=== PATIENT | female | born 1945 | race Caucasian/White ===

== ENCOUNTER 2020-04-02 05:55 | Observation (INO) | payer MEDICARE ==
[2020-03-31 13:46] LABS: BASOPHILS # (AUTO) 0.1 (0.0-0.1); BASOPHILS % 0.8 % (0.0-1.0); EOSINOPHILS # (AUTO) 0.1 (0.0-0.4); HEMATOCRIT 43.7 % (34.2-44.1); LYMPHOCYTES # (AUTO) 2.3 (1.0-3.2); LYMPHOCYTES % 35.5 % (18.0-39.1); MEAN CORPUSCULAR HEMOGLOBIN 29.6 pg (28-32); MEAN CORPUSCULAR VOLUME 92.4 fL (81-99); MONOCYTES # (AUTO) 0.4 (0.2-0.8); MONOCYTES % 6.1 % (4.4-11.3); NEUTROPHILS # (AUTO) 3.6 (2.1-6.9); NEUTROPHILS % 55.3 % (38.7-80.0); PLATELET COUNT 256 x10e3/uL (140-360); RED BLOOD COUNT 4.73 x10e6/uL (3.6-5.1); RED CELL DISTRIBUTION WIDTH 13.1 % (11.7-14.4)
[2020-03-31 13:59] LABS: INR 0.83; PROTHROMBIN TIME 11.8 seconds (11.9-14.5)
[2020-03-31 14:00] LABS: PARTIAL THROMBOPLASTIN TIME 26.6 seconds (23.8-35.5)
[2020-03-31 14:04] LABS: ANION GAP 13.4 mmol/L (8-16); CALCIUM 9.3 mg/dL (8.4-10.2); CREATININE, SERUM 0.97 mg/dL (0.57-1.11); POTASSIUM 4.4 mmol/L (3.5-5.1)
--- NOTE | 2020-03-31 14:12 | Diagnostic Imaging Report ---
Exam: CHEST 2 VIEWS Date: 03/31/2020 2:08 PM INDICATION: ^[id number] ^[id number] ^PRE OP Comparison: None FINDINGS: Lines/Tubes:None Lungs:The lungs are well inflated. No focal consolidation or pulmonary edema. Pleura:No pleural effusion. No pneumothorax. Heart/Mediastinum:The cardiomediastinal silhouette is normal in size and contour. Bones/Soft Tissues: No acute osseous abnormality. Mild multilevel degenerative changes of the spine are noted. Upper abdomen: Unremarkable. IMPRESSION: Negative for acute intrathoracic process. Signed by: Blayne Urbano MD on 03/31/2020 2:09 PM
[~2020-04-02] VITALS: Ht 162.6 cm; Wt 71.2 kg
[~2020-04-02 05:55] MED LIST: GABAPENTIN300 MG PO; METOPROLOL SUCC50 MG PO; TIZANIDINE HCL2 MG PO; ULTRAM50 MG PO
[2020-04-02] MEDS ORDERED: LIDOCAINE 1% W/EPINEPHRINE 20 ML VIAL ONE (06:52)
[2020-04-02] MEDS ORDERED: VANCOMYCIN HCL 1 GM VIAL ONE (06:53)
[2020-04-02] MEDS ORDERED: THROMBIN FOR SOLN 5,000 UNIT VIAL ONE (06:53)
[2020-04-02] MEDS ORDERED: VANCOMYCIN 1GM/NS 250 ML 250 ML ONE (07:03)
[2020-04-02] MEDS ORDERED: CARISOPRODOL 350 MG TAB PO PRN (10:00)
[2020-04-02] MEDS ORDERED: ONDANSETRON HCL INJ 2MG/ML 2ML 2 MG/ML VIAL IV PRN (10:00)
[2020-04-02] MEDS ORDERED: MORPHINE SULFATE INJ 4 MG/ML INJ 1ML IM PRN (10:00)
[2020-04-02] MEDS ORDERED: MAGNESIUM/ALUMINUM/SIMETHICONE 30 ML UDC PO PRN (10:00)
[2020-04-02] MEDS ORDERED: TRAMADOL HCL 50 MG TAB PO SCH (10:00)
[2020-04-02] MEDS ORDERED: PROMETHAZINE HCL (IM) 25 MG/ML VIAL IM PRN (10:00)
[2020-04-02] MEDS ORDERED: CEPACOL SORE THROAT LOZENGES PO PRN (10:00)
[2020-04-02] MEDS ORDERED: ACETAMINOPHEN 325 MG TAB PO PRN (10:00)
[2020-04-02] MEDS ORDERED: HYDROMORPHONE 1MG/1ML INJ ONE ×2 (10:48→11:00)
--- OUTSIDE RECORDS SUMMARY | 2020-04-02 11:16 | XMS REPORT | Continuity of Care Document ---
Author Author [facility] t Organization [facility] Address [address] [place] [address] Phone Unavailable Care Team Providers Care Editor Book Name Role Phone JUSTIN PIERRE Attta Unavailable Problems Condition Name Condition Details Condition Category Status Onset Date Resolution Date Last Treatment Date Treating Clinician Comments Source Benign paroxysmal positional vertigo, unspecified late rality Benign paroxysmal positional vertigo, unspecified laterality Active Problem 10/20/2018 [id number] Problem Active 2018-10-20 02:45:15 Jhonatan Palomares Asthmatic bronchitis, moderate persistent, uncomplicat ed Asthmatic bronchitis, moderate persistent, uncomplicated Active Problem 10/20/2018 [id number] Problem Active 2018-10-20 02:45:15 Jhonatan Palomares Insomnia, unspecified type Ins omnia, unspecified type Active Problem 03/19/2020 [id number] Problem Active 2020-03-19 02:45:08 Jhonatan Palomares Acute diverticulitis Acut e diverticulitis Active Problem 03/19/2020 [id number] Problem Active 2020-03-19 02:45:08 Jhonatan Palomares Urinary incontinence in female Urinary incontinence in female Active Problem 03/19/2020 [id number] Problem Active 2020-03-19 02:45:08 Jhonatan Palomares Chronic allergic rhinitis, unspecified seasonality, un specified trigger Chronic allergic rhinitis, unspecified seasonality, unspecified trigger Active Problem 03/19/2020 2.16.840.1.793509.4.391.11.15372 Problem Active 2020-03-19 02:45:08 Jhonatan Palomares Impaired memory Impa ired memory Active Problem 03/19/2020 2.16.840.1.523965.4.391.11.13597 Problem Active 2020-03-19 02:45:08 Jhonatan Jelani Gastroesophageal reflux disease, esophagitis presence not specified Gastroesophageal reflux disease, esophagitis presence not specified Active Problem 03/19/2020 2.16.840.1.268505.4.391.11.37749 Problem Active 2020-03-19 02:45:08 Jhonatan Jelani Hypertensive heart disease without heart failure Hypertensive heart disease without heart failure Active Problem 10/20/2018 2.16.840.1.863275.4.391.11.53743 Problem Active 2018-10-20 02:45:15 Jhonatan Paloamres Menopausal and female climacteric states Menopausal and female climacteric states Active Problem 03/19/2020 2.16.840.1.399876.4.391.11.52896 Problem Active 2020-03-19 02:45:08 Elmer kateajay Palomares Benign essential hypertension Benign essential hypertension Active Problem 03/19/2020 2.16.840.1.604070.4.391.11.72452 Problem Active 2020-03-19 02:45:08 Memmor Palomares Other and unspecified hyperlipidemia Other and unspecified hyperlipidemia Active Problem 03/19/2020 2.16.840.1.313676.4.391.11.66566 Problem Active 2020-03-19 02:45:08 Elmer Palomares Obesity (BMI 30-39.9) Obes ity (BMI 30-39.9) Active Problem 03/19/2020 2.16.840.1.513800.4.391.11.42671 Problem Active 2020-03-19 02:45:08 Jhonatan Palomares Bronchitis, allergic, unspecified asthma severity, unc omplicated Bronchitis, allergic, unspecified asthma severity, uncomplicated Active Problem 10/20/2018 2.16.840.1.835820.4.391.11.95475 Problem Active 2018-10-20 02:45:15 Jhonatan Palomares COPD exacerbation COPD exacerbation Active Problem 10/20/2018 2.16.840.1.883893.4.391..50916 Problem Active 2018-10-20 02:45:15 Jhonatan Palomares Moderate persistent asthmatic bronchitis with acute ex acerbation Moderate persistent asthmatic bronchitis with acute exacerbation Active Problem 03/19/2020 2.16.840.1.189914.4.391.11.07797 Problem Active 2020-03-19 02:45:08 Jhonatan Palomares Altered mental status, unspecified altered mental stat us type Altered mental status, unspecified altered mental status type Active Problem 10/20/2018 2.16.840.1.492690.4.391.11.48205 Problem Active 2018-10-20 02:45:15 Jhonatan Palomares Osteoarthritis, generalized Os teoarthritis, generalized Active Problem 03/19/2020 2.16.840.1.615427.4.391.11.16470 Problem Active 2020-03-19 02:45:08 Jhonatan Palomares Arthritis Arth ritis Active Problem 06/11/2019 2. 16.840.1.532952.4.391.11.01801 Problem Active 2019-06-11 03:48:57 [facility] [place] Other chronic pain Othe r chronic pain Active Problem 03/19/2020 2.16.840.1.267658.4.391.11.83304 Problem Active 2020-03-19 02:45:08 Jhonatan Palomares Postmenopausal bleeding Post menopausal bleeding Active Problem 03/19/2020 2.16.840.1.471035.4.391.11.95417 Problem Active 2020-03-19 02:45:08 Jhonatan Palomares Chest pain, unspecified type C hest pain, unspecified type Active Diagnosis 10/20/2016 2.16.840.1.752314.4.391.11.36124 Diagnosis Active 2016-10-20 02:45:14 Michelet Palomares Abdominal pain, unspecified location Abdominal pain, unspecified location Active Diagnosis 10/20/2016 2.16.840.1.557269.4.391.11.13146 Diagnosis Active 2016-10-20 02:45:14 Jhonatan Palomares Encounter for immunization Enc ounter for immunization Active Diagnosis 03/22/2019 2.16.840.1.533472.4.391.11.28589 Diagnosis Active 2019-03-22 02:49:48 Jhonatan Jelani Vitamin D deficiency Irina min D deficiency Active Problem 03/19/2020 2.16.840.1.339796.4.391.11.85082 Problem Active 2020-03-19 02:45:08 [facility] Vitamin B 12 deficiency Irina min B 12 deficiency Active Diagnosis 12/29/2018 2.16.840.1.858529.4.391.11.05920 Diagnosis Active 2018-12-29 02:46:20 [facility] Encounter for screening Enco unter for screening Active Diagnosis 12/29/2018 2.16.840.1.089358.4.391.11.77304 Diagnosis Active 2018-12-29 02:46:20 [facility] Encounter for annual general medical exa mination with abnormal findings in adult Encounter for an nual general medical examination with abnormal findings in adult Active Diagnosis 07/17/2019 2.16.840.1.302202.4.391.11.06821 Diagnosis Active 2019-07-17 03:45:41 [facility] Generalized edema Gene ralized edema Active Diagnosis 10/11/2017 2.16.840.1.061307.4.391.11.53699 Diagnosis Active 2017-10-11 02:47:24 [facility] Shortness of breath Shor tness of breath Active Diagnosis 10/11/2017 2.16.840.1.294635.4.391.11.03101 Diagnosis Active 2017-10-11 02:47:24 [facility] Arthralgia, unspecified joint Arthralgia, unspecified joint Active Diagnosis 04/15/2018 2.16.840.1.758604.4.391.11.55128 Diagnosis Active 2018-04-15 03:45:52 Michelet Palomares Suicide ideation Suic paul ideation Active Diagnosis 09/29/2018 2.16.840.1.049666.4.391.11.37005 Diagnosis Active 2018-09-29 02:53:28 [facility] [address] Cough Coug h Active Diagnosis 12/23/2017 2.16.840.1.169537.4.391.11.89307 Diagnosis Active 2017-12-23 02:49:22 [facility] Edema, unspecified type Sergio a, unspecified type Active Diagnosis 01/19/2018 2.16.840.1.028976.4.391.11.14142 Diagnosis Active 2018-01-19 02:46:41 [facility] Acute bronchitis due to other specified organisms Acute bronchitis due to other specified organisms Active Diagnosis 06/21/2018 2.16.840.1.191220.4.391.11.04117 Diagnosis Active 2018-06-21 03:49:35 [facility] Wheezing Whee zing Active Diagnosis 06/21/2018 2 ..840.1.280655.4.391.11.36700 Diagnosis Active 2018-06-21 03:49:35 [facility] Low back pain Low back pain Active Diagnosis 06/21/2018 2.16.840.1.568398.4.391..74188 Diagnosis Active 2018-06-21 03:49:35 [facility] BMI 29.0-29.9,adult BMI 29.0-29.9,adult Active Diagnosis 02/13/2016 2.16.840.1.021665.4.391.11.20240 Diagnosis Active 2016-02-13 02:49:25 [facility] Acute bronchitis Acut e bronchitis Active Diagnosis 02/13/2016 2.16.840.1.794972.4.391.11.85400 Diagnosis Active 2016-02-13 02:49:25 [facility] Community acquired pneumonia C ommunity acquired pneumonia Active Diagnosis 05/20/2016 2.16.840.1.078019.4.391.11.03066 Diagnosis Active 2016-05-20 03:54:00 Michelet Palomares Low back pain with sciatica, sciatica la terality unspecified, unspecified back pain laterality, unspecified chronicity Low back pain with sciatica, sciatica laterality unspecified, unspecified back pain laterality, unspecified chronicity Active Diagnosis 06/22/2016 2.16.840.1.788068.4.391.11.71987 Diagnosis Active 2016-06-22 03:54:56 [facility] Acute bronchitis, unspecified organism Acute bronchitis, unspecified organism Active Diagnosis 08/08/2016 2.16.840.1.508765.4.391.11.99889 Diagnosis Active 2016-08-08 02:45:19 [facility] Sigmoid diverticulitis Sigm oid diverticulitis Active Problem 06/11/2019 2.16.840.1.513272.4.391..31848 Problem Active 2019-06-11 03:48:57 [facility] Thyroid nodule Thyr oid nodule Active Problem 03/19/2020 2.16.840.1.871855.4.391..15538 Problem Active 2020-03-19 02:45:08 [facility] Pain in right leg Pain in right leg Active Diagnosis 06/11/2019 2.16.840.1.054225.4.391.68 Diagnosis Active 2019-06-11 03:48:57 [facility] Radicular pain of right lower extremity Radicular pain of right lower extremity Active Diagnosis 06/11/2019 2.16.840.1.507619.4.391..28821 Diagnosis Active 2019-06-11 03:48:57 [facility] [place] Rhonchi at right lung base Rho nchi at right lung base Active Diagnosis 06/11/2019 2.16.840.1.448464.4.391.68 Diagnosis Active 2019-06-11 03:48:57 [facility] Other abnormalities of breathing Other abnormalities of breathing Active Diagnosis 06/11/2019 2.16.840.1.555726.4.391.68 Diagnosis Active 2019-06-11 03:48:57 [facility] [place] Dyspnea, unspecified Dysp giorgio, unspecified Active Diagnosis 06/11/2019 2.16.840.1.575716.4.391.68 Diagnosis Active 2019-06-11 03:48:57 [facility] Vaginal discharge Vagi nal discharge Active Diagnosis 06/11/2019 2.16.840.1.485428.4.391.68 Diagnosis Active 2019-06-11 03:48:57 [facility] Laryngitis Dorothy ngitis Active Diagnosis 06/11/2019 2.16.840.1.332688.4.391.68 Diagnosis Active 2019-06-11 03:48:57 [facility] BMI 25.0-25.9,adult BMI 25.0-25.9,adult Active Diagnosis 07/17/2019 2.16.840.1.820115.4.391.11.28313 Diagnosis Active 2019-07-17 03:45:41 [facility] Severe episode of recurrent major depres sive disorder, without psychotic features Severe episode o f recurrent major depressive disorder, without psychotic features Active Problem 03/19/2020 2.16.840.1.695770.4.391.11.49312 Problem Active 2020-03-19 02:45:08 [facility] 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 Active Problem 03/19/2020 2.16.840.1.455979.4.391.11.42221 Problem Active 2020-03-19 02:45:08 Michelet Palomares Cellulitis of hand Cell ulitis of hand Active Diagnosis 09/10/2019 2.16.840.1.119405.4.391.11.27010 Diagnosis Active 2019-09-10 02:51:29 [facility] Acute gout of right foot, unspecified cause Acute gout of right foot, unspecified cause Active Problem 03/19/2020 2.16.840.1.702394.4.391.11.87964 Problem Active 2020-03-19 02:45:08 Ijeoma Palomares Allergies, Adverse Reactions, Alerts Allergy Name Allergy Type Status Severity Reaction(s) Onset Date Inacti ve Date Treating Clinician Comments Source Aspirin Aspirin Active Info Not Available 2019-12-09 00:00:00 [facility] Penicillin Penicillin Active Info Not Available 2019-12-09 00:00:0 0 [facility] amlodipine amlodipine Active edema 2019-12-09 00:00:00 [facility] Influenza Virus Vacc Split PF Influenza Virus Vacc Split PF Active muscle pain 2017-09-04 00:00:00 [facility] Family History Family Member Diagnosis Comments Start Date Stop Date Source Unknown Family Member Family History 2016-06-22 03:54:56 2 03:54:56 [facility] Social History Social Habit Start Date Stop Date Quantity Comments Source avi Flaherty 2016-07-06 00:00:00 2016-07-06 00:00 :00 [facility] Medications Ordered Medication Name Filled Medication Name Start Date Stop Da te Current Medication? Ordering Clinician Indication Dosage Frequency Signature (SIG) Comments Components Source Xanax 2020-03-18 00:00:00 Yes Lucio Aguila 1/2 h mary tablet [facility] Tramadol HCl 2020-03-18 00:00:00 Yes Lucio Aguila 1 tablet as needed [facility] PredniSONE 2020-01-29 00:00:00 Yes Lucio Aguila 3 tablets a day [facility] Nexium 2020-01-21 02:48:22 Yes Lucio Aguila TAKE ONE CAPSULE BY MOUTH DAILY [facility] Duloxetine HCl 2020-01-21 02:48:22 Yes Lucio Aguila TAKE ONE CAPSULE BY MOUTH DAILY [facility] Maxzide-25 2020-01-21 02:48:22 Yes Lucio Aguila TAKE ONE TABLET BY MOUTH DAILY [facility] Estradiol 2020-01-21 02:48:22 Yes Lucio Aguila TAKE ONE TABLET BY MOUTH DAILY FOR THREE WEEKS - THEN STOP FOR ONE WEEK [facility] hydrochlorothiazide 25 mg tablet 2020-01-21 02:48:22 Yes Lucio Aguila 1 tablet [facility] trazodone 50 mg tablet 2020-01-21 02:48:22 Yes Lucio Aguila 1 tablet [facility] Metoprolol Succinate 2020-01-21 02:48:22 Yes Lucio Aguila 1 tablet [facility] Losartan Potassium 2020-01-21 02:48:22 Yes Lucio Aguila 1 tablet [facility] Tylenol/Codeine #3 2020-01-21 02:48:22 Yes Lucio Aguila TAKE ONE TABLET BY MOUTH EVERY 6 HOURS NEEDED [facility] Pantoprazole Sodium 2020-01-21 02:48:22 Yes Lucio Aguila 1 tablet [facility] Azelastine HCl 2020-01-21 02:48:22 Yes Lucio Aguila SPRAY ONE SPRAY IN EACH NOSTRIL TWICE DAILY (SUBSTITUTE FOR ASTELIN) [facility] Alprazolam 2020-01-21 02:48:22 Yes Lucio Aguila 1/2 half tablet [facility] Avapro 2020-01-21 02:48:22 Yes Lucio Aguila 1 ta blet [facility] Doxycycline Hyclate 2020-01-21 02:48:22 Yes Lucio Aguila 1 tablet [facility] Ciprofloxacin HCl 2020-01-21 02:48:22 Yes Lucio Aguila 1 tablet [facility] Sertraline HCl 2020-01-21 02:48:22 Yes Lucio Aguila 1 tablet [facility] Omeprazole 2020-01-21 02:48:22 Yes Lucio Aguila 1 capsule [facility] Tramadol HCl 2020-01-21 02:48:22 Yes Lucio Aguila TAKE ONE TABLET BY MOUTH TWICE A DAY NEEDED [facility] Estradiol 2020-01-21 02:48:22 Yes Lucio Aguila 1 tablet [facility] Neurontin 2020-01-21 02:48:22 Yes Lucio Aguila 1 capsule [facility] BusPIRone HCl 2020-01-21 02:48:22 Yes Lucio Aguila 1 tablet [facility] Flagyl 2019-12-09 00:00:00 Yes Lucio Aguila 1 ta blet [facility] Cipro 2019-12-09 00:00:00 Yes Lucio Aguila 1 tab let [facility] Keflex 2019-07-05 00:00:00 Yes Lucio Aguila 1 ca psule [facility] Indocin 2019-07-05 00:00:00 Yes Lucio Aguila 1 capsule with food or milk [facility] Omeprazole 2019-07-05 00:00:00 Yes Lucio Aguila 1 capsule 30 minutes before morning meal [facility] Shingrix 2019-06-17 00:00:00 Yes Lucio Aguila as directed [facility] [address] Prevnar 13 2019-06-17 00:00:00 Yes Lucio Aguila as directed [facility] Neurontin 2019-05-17 00:00:00 Yes Lucio Aguila 1 capsule [facility] [address] Azithromycin 2019-05-17 00:00:00 Yes Lucio Aguila as directed [facility] [place] Metronidazole 2019-05-17 00:00:00 Yes Lucio Aguila 1 tablet [facility] Neurontin 2019-05-17 00:00:00 Yes Lucio Aguila 1 capsule [facility] Tramadol HCl 2019-03-22 02:49:48 Yes Lucio Aguila TAKE ONE TABLET BY MOUTH EVERY 6 HOURS NEEDED FOR 7 DAYS [facility] HydrALAZINE HCl 2019-03-14 00:00:00 Yes Lucio Aguila 1 tablet with food [facility] Tramadol HCl 2019-03-14 00:00:00 Yes Lucio Aguila 1 tablet as needed [facility] Metronidazole 2019-02-21 02:50:56 Yes Lucio Aguila 1 tablet [facility] Tramadol HCl 2019-02-21 02:49:26 Yes Lucio Aguila 1 tablet [facility] Ergocalciferol 2019-01-24 00:00:00 Yes Lucio Aguila 1 capsule [facility] PredniSONE 2019-01-23 00:00:00 Yes Lucio Aguila 1 tablet [facility] Losartan Potassium 2019-01-03 00:00:00 Yes Lucio Aguila 1 tablet [facility] Metoprolol Succinate 2018-08-31 02:50:45 Yes Lucio Aguila 1 tablet [facility] alprazolam 0.25 mg Tab 2018-08-31 02:49:20 Yes Lucio J aved 1 capsule [facility] Biaxin 2018-08-28 00:00:00 Yes Lucio Aguila 1 ta blet [facility] Medrol ([facility]) 2018-08-28 00:00:00 Yes Lucio Aguila as directed [facility] PredniSONE 2018-08-06 00:00:00 Yes Lucio Aguila 2 tablet [facility] Pulmicort 2018-08-06 00:00:00 Yes Lucio Aguila 2 ml [facility] Promethazine-DM 2018-07-05 00:00:00 Yes Lucio Aguila 5 ml as needed [facility] Medrol ([facility]) 2018-07-05 00:00:00 Yes Lucio Aguila 1 tablet [facility] Ceftin 2018-07-05 00:00:00 Yes Lucio Aguila 1 ta blet [facility] Tylenol/Codeine #4 2018-06-22 00:00:00 Yes Lucio Aguila 1 tablet as needed [facility] Medrol ([place]) 2018-06-18 00:00:00 Yes Lucoi Aguila 1 tablet [facility] Promethazine VC/Codeine 2018-06-18 00:00:00 Yes Lucio Aguila 5 ml as needed [facility] Vantin 2018-06-18 00:00:00 Yes Lucio Aguila 1 ta blet with food [facility] Tramadol HCl 2018-06-18 00:00:00 Yes Lucio Aguila 1 tablet as needed [facility] Flexeril 2018-04-03 00:00:00 Yes Lucio Aguila 1 tablet as needed [facility] Medrol ([place]o) 2018-04-03 00:00:00 Yes Lucio Aguila as directed [facility] Tylenol 2018-03-08 03:02:12 Yes Lucio Aguila 1 t ablet as needed [facility] Avapro 2018-01-15 00:00:00 Yes Lucio Aguila 1 ta blet [facility] Trelegy Ellipta 2017-12-13 00:00:00 Yes Lucio Aguila 1 puff [facility] Promethazine-Codeine 2017-12-13 00:00:00 Yes Lucio Edwar ed 5 ml as needed [facility] Vantin 2017-12-13 00:00:00 Yes Lucio Aguila 1 ta blet [facility] PredniSONE 2017-10-13 00:00:00 Yes Lucio Aguila 1 tablet [facility] Furosemide 2017-10-05 00:00:00 Yes Lucio Aguila 1 tablet [facility] Klor-Con 10 2017-10-05 00:00:00 Yes Lucio Aguila 1 tablet with food [facility] Meloxicam 2017-09-18 00:00:00 Yes Lucio Aguila 1 tablet at bedtime [facility] Estradiol 2017-09-06 00:00:00 Yes Lucio Aguila 1 tablet [facility] Combivent Respimat 2017-09-04 00:00:00 Yes Lucio Aguila 1 puff [facility] Amlodipine Besylate 2017-09-04 00:00:00 Yes Lucio Aguila 1 tablet [facility] Carafate 2017-09-04 00:00:00 Yes Lucio Aguila 10 ml on an empty stomach before meals [facility] Amlodipine Besylate 2017-09-04 00:00:00 Yes Lucio Aguila 1 tablet [facility] Amlodipine Besylate 2017-08-04 00:00:00 Yes Lucio Aguila 1 tablet [facility] Amlodipine Besylate 2017-08-04 00:00:00 Yes Lucio Aguila 1 tablet [facility] Toprol XL 2017-08-02 00:00:00 Yes Lucio Aguila 1 tablet [facility] Medrol (Neo) 2017-08-02 00:00:00 Yes Lucio Aguila as directed [facility] Tylenol/Codeine #3 2017-08-02 00:00:00 Yes Lucio Aguila 1 tablet as needed [facility] Ceftin 2017-05-18 00:00:00 Yes Lucio Aguila 1 ta blet [facility] PredniSONE 2017-03-09 02:45:26 Yes Lucio Aguila 1 tablet [facility] Estradiol 2017-03-08 00:00:00 Yes Lucio Aguila 1 tablet [facility] PredniSONE 2017-03-08 00:00:00 Yes Lucio Aguila 1 tablet [facility] Estradiol 2017-03-08 00:00:00 Yes Lucio Aguila 1 tablet [facility] Toprol XL 2017-02-08 00:00:00 Yes Lucio Aguila 1 tablet [facility] Myrbetriq 2017-02-08 00:00:00 Yes Lucio Aguila 1 tablet [facility] Premarin 2017-02-08 00:00:00 Yes Lucio Aguila 1 tablet [facility] Cipro 2017-02-08 00:00:00 Yes Lucio Aguila 1 tab let [facility] Premarin 2017-02-08 00:00:00 Yes Lucio Aguila TAKE ONE TABLET BY MOUTH DAILY [facility] Flagyl 2017-02-08 00:00:00 Yes Lucio Aguila 1 ta blet [facility] Premarin 2017-02-08 00:00:00 Yes Lucio Aguila 1 tablet [facility] Toprol XL 2017-02-08 00:00:00 Yes Lucio Aguila 1 tablet [facility] Premarin 2017-01-05 02:46:52 Yes Lucio Aguila TAKE ONE TABLET BY MOUTH DAILY [facility] Medrol ([place]) 2016-12-27 00:00:00 Yes Lucio Aguila as directed [facility] Promethazine-Codeine 2016-12-27 00:00:00 Yes Lucio Edwar ed 5 ml as needed [facility] DuoNeb 2016-12-27 00:00:00 Yes Lucio Aguila 3 ml [facility] Biaxin 2016-12-27 00:00:00 Yes Lucio Aguila 1 ta blet [facility] DuoNeb 2016-12-27 00:00:00 Yes Lucio Aguila 3 ml [facility] [place] DuoNeb 2016-12-27 00:00:00 Yes Lucio Aguila 3 ml [facility] Ditropan XL 2016-10-11 00:00:00 Yes Lucio Aguila as directed [facility] Levaquin 2016-08-18 02:45:16 Yes Lucio Aguila 1 tablet [facility] Triamterene-HCTZ 2016-08-08 02:45:19 Yes Lucio Aguila 1 tablet in the morning [facility] Carafate 2016-08-01 00:00:00 Yes Lucio Aguila 1 tablet on an empty stomach [facility] [place] Medrol ([place]o) 2016-07-06 00:00:00 Yes Lucio Aguila as directed [facility] Guaiatussin AC 2016-07-06 00:00:00 Yes Lucio Aguila 5 ml [facility] Breo Ellipta 2016-07-06 00:00:00 Yes Lucio Aguila 1 puff [facility] Astelin 2016-06-21 00:00:00 Yes Lucio Aguila 1 puff in each nostril [facility] Combivent Respimat 2016-06-21 00:00:00 Yes Lucio Aguila 1 puff [facility] Astelin 2016-06-21 00:00:00 Yes Lucio Aguila 1 puff in each nostril [facility] Combivent Respimat 2016-06-21 00:00:00 Yes Lucio Aguila 1 puff [facility] Tessalon 2016-06-21 00:00:00 Yes Lucio Aguila 1 capsule as needed [facility] Biaxin 2016-06-21 00:00:00 Yes Lucio Aguila 1 ta blet [facility] Levaquin 2016-05-06 00:00:00 Yes Lucio Aguila 1 tablet [facility] Promethazine-Codeine 2016-05-06 00:00:00 Yes Lucio Edwar ed 5 ml as needed [facility] Medrol ([place]) 2016-05-06 00:00:00 Yes Lucio Aguila as directed [facility] Zithromax Tri-[place]o 2016-05-04 00:00:00 Yes Lucio Aguila 1 tablet [facility] Promethazine-DM 2016-05-04 00:00:00 Yes Lucio Aguila 5 ml as needed [facility] Zithromax Tri-[place] 2016-05-03 00:00:00 Yes Lucio Aguila 1 tablet [facility] [place] Promethazine-DM 2016-05-03 00:00:00 Yes Lucio Aguila 5 ml as needed [facility] [place] Toprol XL 2016-02-13 02:49:25 No Lucio Aguila TAKE ONE TABLET BY MOUTH DAILY [facility] [place] Toprol XL 2016-02-09 00:00:00 Yes Lucio Aguila 1 tablet [facility] [place] Toprol XL 2016-02-09 00:00:00 Yes Lucio Aguila 1 tablet [facility] Biaxin 2016-02-09 00:00:00 Yes Lucio Aguila 1 ta blet [facility] Prom[facility]-DM 2016-02-09 00:00:00 Yes Lucio Aguila [facility] V[facility] Sign[facility] Vital Name Observation Time Observation Value Comments Source Weight 2019-12-09 18:15:00 [facility] Height 2019-12-09 18:15:00 [facility] Temperature Oral (F) 2019-12-09 18:15:00 98.0 F [facility] Heart Rate 2019-12-09 18:15:00 [facility] Diastolic (mm Hg) 2019-12-09 18:15:00 [facility] Systolic (mm Hg) 2019-12-09 18:15:00 [facility] Weight 2019-07-05 14:00:00 [facility] Height 2019-07-05 14:00:00 [facility] Heart Rate 2019-07-05 14:00:00 [facility] Diastolic (mm Hg) 2019-07-05 14:00:00 [facility] Systolic (mm Hg) 2019-07-05 14:00:00 [facility] Weight 2019-06-17 19:00:00 [facility] Height 2019-06-17 19:00:00 [facility] Heart Rate 2019-06-17 19:00:00 [facility] Diastolic (mm Hg) 2019-06-17 19:00:00 [facility] Systolic (mm Hg) 2019-06-17 19:00:00 [facility] Weight 2019-05-17 19:45:00 [facility] Height 2019-05-17 19:45:00 [facility] Temperature Oral (F) 2019-05-17 19:45:00 97.1 F [facility] Heart Rate 2019-05-17 19:45:00 [facility] Diastolic (mm Hg) 2019-05-17 19:45:00 [facility] Systolic (mm Hg) 2019-05-17 19:45:00 [facility] Weight 2019-03-14 14:45:00 [facility] Height 2019-03-14 14:45:00 [facility] Temperature Oral (F) 2019-03-14 14:45:00 98.0 F [facility] Heart Rate 2019-03-14 14:45:00 [facility] Diastolic (mm Hg) 2019-03-14 14:45:00 [facility] Systolic (mm Hg) 2019-03-14 14:45:00 [facility] Weight 2019-02-06 15:15:00 [facility] Height 2019-02-06 15:15:00 [facility] Temperature Oral (F) 2019-02-06 15:15:00 97.9 F [facility] Heart Rate 2019-02-06 15:15:00 [facility] Diastolic (mm Hg) 2019-02-06 15:15:00 [facility] Systolic (mm Hg) 2019-02-06 15:15:00 [facility] Weight 2019-01-23 15:00:00 [facility] Height 2019-01-23 15:00:00 [facility] Temperature Oral (F) 2019-01-23 15:00:00 98.1 F [facility] Heart Rate 2019-01-23 15:00:00 [facility] Diastolic (mm Hg) 2019-01-23 15:00:00 [facility] Systolic (mm Hg) 2019-01-23 15:00:00 [facility] Weight 2018-11-08 14:45:00 [facility] Height 2018-11-08 14:45:00 [facility] Temperature Oral (F) 2018-11-08 14:45:00 97.1 F [facility] Heart Rate 2018-11-08 14:45:00 [facility] Diastolic (mm Hg) 2018-11-08 14:45:00 [facility] Systolic (mm Hg) 2018-11-08 14:45:00 [facility] Weight 2018-09-11 15:15:00 [facility] Height 2018-09-11 15:15:00 [facility] Temperature Oral (F) 2018-09-11 15:15:00 97.0 F [facility] Heart Rate 2018-09-11 15:15:00 [facility] Diastolic (mm Hg) 2018-09-11 15:15:00 [facility] Systolic (mm Hg) 2018-09-11 15:15:00 [facility] Weight 2018-08-28 18:30:00 [facility] Height 2018-08-28 18:30:00 [facility] Temperature Oral (F) 2018-08-28 18:30:00 96.4 F [facility] Heart Rate 2018-08-28 18:30:00 [facility] Diastolic (mm Hg) 2018-08-28 18:30:00 [facility] Systolic (mm Hg) 2018-08-28 18:30:00 [facility] Weight 2018-08-06 20:15:00 [facility] Height 2018-08-06 20:15:00 [facility] Temperature Oral (F) 2018-08-06 20:15:00 98.1 F [facility] Heart Rate 2018-08-06 20:15:00 [facility] Diastolic (mm Hg) 2018-08-06 20:15:00 [facility] Systolic (mm Hg) 2018-08-06 20:15:00 [facility] Weight 2018-07-31 15:15:00 [facility] Height 2018-07-31 15:15:00 [facility] Temperature Oral (F) 2018-07-31 15:15:00 96.7 F [facility] Heart Rate 2018-07-31 15:15:00 [facility] Diastolic (mm Hg) 2018-07-31 15:15:00 [facility] Systolic (mm Hg) 2018-07-31 15:15:00 [facility] Weight 2018-07-19 19:15:00 [facility] Height 2018-07-19 19:15:00 [facility] Temperature Oral (F) 2018-07-19 19:15:00 98.8 F [facility] Heart Rate 2018-07-19 19:15:00 [facility] Diastolic (mm Hg) 2018-07-19 19:15:00 [facility] Systolic (mm Hg) 2018-07-19 19:15:00 [facility] Weight 2018-07-05 16:15:00 [facility] Height 2018-07-05 16:15:00 [facility] Temperature Oral (F) 2018-07-05 16:15:00 98.7 F [facility] Heart Rate 2018-07-05 16:15:00 [facility] Diastolic (mm Hg) 2018-07-05 16:15:00 [facility] Systolic (mm Hg) 2018-07-05 16:15:00 [facility] Weight 2018-06-18 16:30:00 [facility] Height 2018-06-18 16:30:00 [facility] Temperature Oral (F) 2018-06-18 16:30:00 99.2 F [facility] Heart Rate 2018-06-18 16:30:00 [facility] Diastolic (mm Hg) 2018-06-18 16:30:00 [facility] Systolic (mm Hg) 2018-06-18 16:30:00 [facility] Weight 2018-04-03 16:30:00 [facility] Height 2018-04-03 16:30:00 [facility] Temperature Oral (F) 2018-04-03 16:30:00 97.3 F [facility] Heart Rate 2018-04-03 16:30:00 [facility] Diastolic (mm Hg) 2018-04-03 16:30:00 [facility] Systolic (mm Hg) 2018-04-03 16:30:00 [facility] Weight 2018-02-12 14:00:00 [facility] Height 2018-02-12 14:00:00 [facility] Temperature Oral (F) 2018-02-12 14:00:00 97.9 F [facility] Heart Rate 2018-02-12 14:00:00 [facility] Diastolic (mm Hg) 2018-02-12 14:00:00 [facility] Systolic (mm Hg) 2018-02-12 14:00:00 [facility] Weight 2018-01-15 14:00:00 [facility] Height 2018-01-15 14:00:00 [facility] Temperature Oral (F) 2018-01-15 14:00:00 97.7 F [facility] Heart Rate 2018-01-15 14:00:00 [facility] Diastolic (mm Hg) 2018-01-15 14:00:00 [facility] Systolic (mm Hg) 2018-01-15 14:00:00 [facility] Weight 2017-12-18 16:00:00 [facility] Height 2017-12-18 16:00:00 [facility] Temperature Oral (F) 2017-12-18 16:00:00 98.2 F [facility] Heart Rate 2017-12-18 16:00:00 [facility] Diastolic (mm Hg) 2017-12-18 16:00:00 [facility] Systolic (mm Hg) 2017-12-18 16:00:00 [facility] Weight 2017-12-13 14:00:00 [facility] Height 2017-12-13 14:00:00 [facility] Heart Rate 2017-12-13 14:00:00 [facility] Diastolic (mm Hg) 2017-12-13 14:00:00 [facility] Systolic (mm Hg) 2017-12-13 14:00:00 [facility] Weight 2017-11-13 13:15:00 [facility] Height 2017-11-13 13:15:00 [facility] Temperature Oral (F) 2017-11-13 13:15:00 99.0 F [facility] Heart Rate 2017-11-13 13:15:00 [facility] Diastolic (mm Hg) 2017-11-13 13:15:00 [facility] Systolic (mm Hg) 2017-11-13 13:15:00 [facility] Weight 2017-10-13 13:15:00 [facility] Height 2017-10-13 13:15:00 [facility] Temperature Oral (F) 2017-10-13 13:15:00 99.2 F [facility] Heart Rate 2017-10-13 13:15:00 [facility] Diastolic (mm Hg) 2017-10-13 13:15:00 [facility] Systolic (mm Hg) 2017-10-13 13:15:00 [facility] Weight 2017-10-05 21:00:00 [facility] Height 2017-10-05 21:00:00 [facility] Temperature Oral (F) 2017-10-05 21:00:00 98.5 F [facility] Heart Rate 2017-10-05 21:00:00 [facility] Diastolic (mm Hg) 2017-10-05 21:00:00 [facility] Systolic (mm Hg) 2017-10-05 21:00:00 [facility] Weight 2017-09-18 14:45:00 [facility] Height 2017-09-18 14:45:00 [facility] Temperature Oral (F) 2017-09-18 14:45:00 99.1 F [facility] Heart Rate 2017-09-18 14:45:00 [facility] Diastolic (mm Hg) 2017-09-18 14:45:00 [facility] Systolic (mm Hg) 2017-09-18 14:45:00 [facility] Weight 2017-09-04 14:45:00 [facility] Height 2017-09-04 14:45:00 [facility] Temperature Oral (F) 2017-09-04 14:45:00 98.4 F [facility] Heart Rate 2017-09-04 14:45:00 [facility] Diastolic (mm Hg) 2017-09-04 14:45:00 [facility] Systolic (mm Hg) 2017-09-04 14:45:00 [facility] Weight 2017-08-04 18:00:00 [facility] Height 2017-08-04 18:00:00 [facility] Temperature Oral (F) 2017-08-04 18:00:00 98.7 F [facility] Heart Rate 2017-08-04 18:00:00 [facility] Diastolic (mm Hg) 2017-08-04 18:00:00 [facility] Systolic (mm Hg) 2017-08-04 18:00:00 [facility] Weight 2017-08-02 15:15:00 [facility] Height 2017-08-02 15:15:00 [facility] Temperature Oral (F) 2017-08-02 15:15:00 98.3 F [facility] Heart Rate 2017-08-02 15:15:00 [facility] Diastolic (mm Hg) 2017-08-02 15:15:00 [facility] Systolic (mm Hg) 2017-08-02 15:15:00 [facility] Weight 2017-03-08 13:45:00 [facility] Height 2017-03-08 13:45:00 [facility] Temperature Oral (F) 2017-03-08 13:45:00 98.9 F [facility] Heart Rate 2017-03-08 13:45:00 [facility] Diastolic (mm Hg) 2017-03-08 13:45:00 [facility] Systolic (mm Hg) 2017-03-08 13:45:00 [facility] Weight 2017-02-08 14:00:00 [facility] Height 2017-02-08 14:00:00 [facility] Temperature Oral (F) 2017-02-08 14:00:00 98.8 F [facility] Heart Rate 2017-02-08 14:00:00 [facility] Diastolic (mm Hg) 2017-02-08 14:00:00 [facility] Systolic (mm Hg) 2017-02-08 14:00:00 [facility] Weight 2016-12-27 18:45:00 [facility] Height 2016-12-27 18:45:00 [facility] Temperature Oral (F) 2016-12-27 18:45:00 99.3 F [facility] Heart Rate 2016-12-27 18:45:00 [facility] Diastolic (mm Hg) 2016-12-27 18:45:00 [facility] Systolic (mm Hg) 2016-12-27 18:45:00 [facility] Weight 2016-10-11 13:30:00 [facility] Height 2016-10-11 13:30:00 [facility] Heart Rate 2016-10-11 13:30:00 [facility] Diastolic (mm Hg) 2016-10-11 13:30:00 [facility] Systolic (mm Hg) 2016-10-11 13:30:00 [facility] Weight 2016-08-22 18:00:00 [facility] Height 2016-08-22 18:00:00 [facility] Temperature Oral (F) 2016-08-22 18:00:00 98.5 F [facility] Heart Rate 2016-08-22 18:00:00 [facility] Diastolic (mm Hg) 2016-08-22 18:00:00 [facility] Systolic (mm Hg) 2016-08-22 18:00:00 [facility] Weight 2016-08-16 15:00:00 [facility] Height 2016-08-16 15:00:00 [facility] Temperature Oral (F) 2016-08-16 15:00:00 98.6 F [facility] Heart Rate 2016-08-16 15:00:00 [facility] Diastolic (mm Hg) 2016-08-16 15:00:00 [facility] Systolic (mm Hg) 2016-08-16 15:00:00 [facility] Weight 2016-08-01 13:45:00 [facility] Height 2016-08-01 13:45:00 [facility] Temperature Oral (F) 2016-08-01 13:45:00 98.2 F [facility] Heart Rate 2016-08-01 13:45:00 [facility] Diastolic (mm Hg) 2016-08-01 13:45:00 [facility] Systolic (mm Hg) 2016-08-01 13:45:00 [facility] Weight 2016-07-06 15:30:00 [facility] Height 2016-07-06 15:30:00 [facility] Temperature Oral (F) 2016-07-06 15:30:00 97.8 F [facility] Heart Rate 2016-07-06 15:30:00 [facility] Diastolic (mm Hg) 2016-07-06 15:30:00 [facility] Systolic (mm Hg) 2016-07-06 15:30:00 [facility] Weight 2016-06-21 14:45:00 [facility] Height 2016-06-21 14:45:00 [facility] Temperature Oral (F) 2016-06-21 14:45:00 98.1 F [facility] Heart Rate 2016-06-21 14:45:00 [facility] Diastolic (mm Hg) 2016-06-21 14:45:00 [facility] Systolic (mm Hg) 2016-06-21 14:45:00 [facility] Weight 2016-05-06 17:00:00 [facility] Height 2016-05-06 17:00:00 [facility] Heart Rate 2016-05-06 17:00:00 [facility] Diastolic (mm Hg) 2016-05-06 17:00:00 [facility] Systolic (mm Hg) 2016-05-06 17:00:00 [facility] Weight 2016-02-09 16:00:00 [facility] Height 2016-02-09 16:00:00 [facility] Temperature Oral (F) 2016-02-09 16:00:00 98.5 F [facility] Heart Rate 2016-02-09 16:00:00 [facility] Diastolic (mm Hg) 2016-02-09 16:00:00 [facility] Systolic (mm Hg) 2016-02-09 16:00:00 [facility] Procedures This patient has no known procedures. Encounters Start Date/Time End Date/Time En[facility] Source 2020-03-20 09:58:00 2020-03-20 09:58:00 Outpatient [facility] MED [id number] [facility] 2020-03-18 09:32:00 2020-03-18 09:32:00 Outpatient [facility] [place] [id number] eClinicalWork s 2020-03-18 08:13:00 2020-03-18 08:13:00 Outpatient [facility] PA [id number] eClinicalWork s 2020-02-22 09:17:00 2020-02-22 09:17:00 Emergency E [facility] [id number] [facility] 2020-02-17 13:36:00 2020-02-17 13:36:00 Emergency E [facility]SE [facility]SE [id number] [facility] 2020-02-17 09:54:00 2020-02-17 09:54:00 Outpatient [facility] PA [id number] eClinicalWork s 2020-02-05 09:58:00 2020-02-05 09:58:00 Outpatient [facility] PA [id number] eClinicalWork s 2020-01-29 10:15:00 2020-01-29 10:15:00 Outpatient [facility] MED [id number] [facility] 2019-12-09 13:15:00 2019-12-09 13:15:00 Outpatient [facility] PA [id number] eClinicalWork s 2019-07-05 10:30:00 2019-07-05 10:30:00 Outpatient [facility] MED [id number] [facility] 2019-07-05 09:00:00 2019-07-05 09:00:00 Outpatient [facility] PA [id number] eClinicalWork s 2019-06-17 13:00:00 2019-06-17 13:00:00 Outpatient [facility] PA [id number] eClinicalWork s 2019-05-17 13:45:00 2019-05-17 13:45:00 Outpatient [facility] PA [id number] eClinicalWork s 2019-03-14 09:45:00 2019-03-14 09:45:00 Outpatient [facility] PA [id number] eClinicalWork s 2019-02-06 10:15:00 2019-02-06 10:15:00 Outpatient [facility] PA [id number] eClinicalWork s 2019-01-23 10:00:00 2019-01-23 10:00:00 Outpatient [facility] PA [id number] eClinicalWork s 2018-11-08 09:45:00 2018-11-08 09:45:00 Outpatient [facility] PA [id number] eClinicalWork s 2018-10-18 11:38:00 2018-10-18 11:38:00 Outpatient [facility] PA [id number] eClinicalWork s 2018-09-11 10:15:00 2018-09-11 10:15:00 Outpatient [facility] PA [id number] eClinicalWork s 2018-09-06 17:15:00 2018-09-06 17:15:00 Emergency E [facility]SE [facility]SE [id number] [facility] 2018-09-03 12:34:00 2018-09-03 12:34:00 Outpatient E [facility] MED [id number] [facility] 2018-08-28 13:30:00 2018-08-28 13:30:00 Outpatient [facility] PA [id number] eClinicalWork s 2018-08-06 15:15:00 2018-08-06 15:15:00 Outpatient [facility] PA [id number] eClinicalWork s 2018-07-31 11:42:00 2018-07-31 11:42:00 Outpatient [facility] PA [id number] eClinicalWork s 2018-07-31 10:15:00 2018-07-31 10:15:00 Outpatient [facility] PA [id number] eClinicalWork s 2018-07-19 13:15:00 2018-07-19 13:15:00 Outpatient [facility] PA [id number] eClinicalWork s 2018-07-16 11:11:00 2018-07-16 11:11:00 Outpatient [facility] PA [id number] eClinicalWork s 2018-07-05 10:15:00 2018-07-05 10:15:00 Outpatient [facility] PA [id number] eClinicalWork s 2018-06-22 13:36:00 2018-06-22 13:36:00 Outpatient [facility] PA [id number] eClinicalWork s 2018-06-22 13:13:00 2018-06-22 13:13:00 Outpatient [facility] PA [id number] eClinicalWork s 2018-06-18 10:30:00 2018-06-18 10:30:00 Outpatient [facility] PA [id number] eClinicalWork s 2018-04-03 10:30:00 2018-04-03 10:30:00 Outpatient [facility] PA [id number] eClinicalWork s 2018-03-23 08:03:00 2018-03-23 08:03:00 Outpatient [facility] PA [id number] eClinicalWork s 2018-02-12 09:00:00 2018-02-12 09:00:00 Outpatient [facility] PA [id number] eClinicalWork s 2018-01-15 09:00:00 2018-01-15 09:00:00 Outpatient [facility] PA [id number] eClinicalWork s 2017-12-18 11:00:00 2017-12-18 11:00:00 Outpatient [facility] PA [id number] eClinicalWork s 2017-12-13 09:00:00 2017-12-13 09:00:00 Outpatient [facility] PA [id number] eClinicalWork s 2017-11-13 08:15:00 2017-11-13 08:15:00 Outpatient [facility] PA [id number] eClinicalWork s 2017-10-13 08:15:00 2017-10-13 08:15:00 Outpatient [facility] PA [id number] eClinicalWork s 2017-10-05 16:00:00 2017-10-05 16:00:00 Outpatient [facility] PA [id number] eClinicalWork s 2017-09-18 09:45:00 2017-09-18 09:45:00 Outpatient [facility] PA [id number] eClinicalWork s 2017-09-06 16:07:00 2017-09-06 16:07:00 Outpatient [facility] PA [id number] eClinicalWork s 2017-09-06 11:17:00 2017-09-06 11:17:00 Outpatient [facility] PA [id number] eClinicalWork s 2017-09-04 09:45:00 2017-09-04 09:45:00 Outpatient [facility] PA [id number] eClinicalWork s 2017-08-04 13:00:00 2017-08-04 13:00:00 Outpatient [facility] PA [id number] eClinicalWork s 2017-08-04 11:49:00 2017-08-04 11:49:00 Outpatient [facility] PA [id number] eClinicalWork s 2017-08-02 10:15:00 2017-08-02 10:15:00 Outpatient [facility] PA [id number] eClinicalWork s 2017-05-18 15:49:00 2017-05-18 15:49:00 Outpatient [facility] PA [id number] eClinicalWork s 2017-04-03 13:55:00 2017-04-03 13:55:00 Outpatient [facility] PA [id number] eClinicalWork s 2017-03-08 08:45:00 2017-03-08 08:45:00 Outpatient [facility] PA [id number] eClinicalWork s 2017-02-08 09:00:00 2017-02-08 09:00:00 Outpatient [facility] PA [id number] eClinicalWork s 2016-12-27 13:45:00 2016-12-27 13:45:00 Outpatient [facility] PA [id number] eClinicalWork s 2016-10-11 08:30:00 2016-10-11 08:30:00 Outpatient [facility] PA [id number] eClinicalWork s 2016-08-22 13:00:00 2016-08-22 13:00:00 Outpatient [facility] PA [id number] eClinicalWork s 2016-08-16 10:00:00 2016-08-16 10:00:00 Outpatient [facility] [id number] eClinicalWork s 2016-08-01 08:45:00 2016-08-01 08:45:00 Outpatient [facility] PA [id number] eClinicalWork s 2016-07-06 09:30:00 2016-07-06 09:30:00 Outpatient [facility] [id number] eClinicalWorks 2016-06-21 08:45:00 2016-06-21 08:45:00 Outpatient [facility] [id number] eClinicalWorks 2016-05-06 11:00:00 2016-05-06 11:00:00 Outpatient [facility] [id number] eClinicalWorks 2016-05-04 10:08:00 2016-05-04 10:08:00 Outpatient [facility] [id number] eClinicalWorks 2016-05-03 16:27:00 2016-05-03 16:27:00 Outpatient [facility] [id number] eClinicalWorks 2016-02-22 16:29:00 2016-02-22 16:29:00 Outpatient [facility] [id number] eClinicalWorks 2016-02-09 11:00:00 2016-02-09 11:00:00 Outpatient [facility] [id number] eClinicalWorks Results Test Description Test Time Test Comments Results Result Comments Source CHEST 2 VIEWS 2020-03-31 14:08:00 [facility] : 1945 Sex: F [facility] [address] [address] Patient Name: OLYD BUENO MR #: [id number] : 1945 Age/Sex: 74/F Req #: [id number] [facility] Physician: Ordered by: JUSTIN PIERRE MD Report #: [id number] Location: OR Room/Bed: Procedure: [id number] DX/CHEST 2 VIEWS Exam Date: 03/31/20 Exam Time: 1345 REPORT STATUS: Signed Exam: CHEST 2 VIEWS Date: 03/31/2020 2:08 PM INDICATION: [id number] PRE OP Comparison: None FINDINGS: Lines/Tubes:None Lungs:The lungs are well inflated. No focal consolidation or pulmonary edema. Pleura:No pleural effusion. No pneumothorax. Heart/Mediastinum:The cardiomediastinal silhouette is normal in size and contour. Bones/Soft Tissues: No acute osseous abnormality. Mild multilevel degenerative changes of the spine are noted. Upper abdomen: Unremarkable. IMPRESSION: Negative for acute intrathoracic process. Signed by: Celestine Urbano MD on 03/31/2020 2:09 PM Dictated By: CELESTINE URBANO MD 08 Transcribed By: DOUGLAS on 03/31/201408 COPY TO: JUSTIN PIERRE MD
--- OUTSIDE RECORDS SUMMARY | 2020-04-02 11:16 | XMS REPORT | Continuity of Care Document ---
Author Author Jhonatan [email or web address], HLEADIOJAY LINARES Organization [facility] Address Unknown Phone Unavailable Care Team Providers Care Human Resources Office Manager Name Role Phone [facility] Unavailable Un available Problems Problem Status Onset Date Classification Date Reported Comments Source Benign paroxysmal positional vertigo, un specified laterality Active Prob bryce 10/20/2018 2.16.840.1.093135.4.391.11.77454 Asthmatic bronchitis, moderate persisten t, uncomplicated Active Prob bryce 10/20/2018 2.16.840.1.079550.4.391.11.86118 Insomnia, unspecified type Act nancy Problem 2.16.840.1.554017.4.391.11.2 2568 Acute diverticulitis Active Problem 03/19/2020 2.16.840.1.605366.4.391.11.2 2568 Urinary incontinence in female Active Problem 2.16.840.1.182822.4.391.11.2 2568 Chronic allergic rhinitis, unspecified s easonality, unspecified trigger Active Prob bryce 03/19/2020 2.16.840.1.095329.4.391.11.65007 Impaired memory Active Problem 03/19/2020 2.16.840.1.763762.4.391.11.2 2568 Gastroesophageal reflux disease, esophag itis presence not specified Active Prob bryce 03/19/2020 2.16.840.1.004847.4.391.11.36441 Hypertensive heart disease without heart failure Active Problem 10/20/2018 2.16.840.1.568167.4.391.11.64845 Menopausal and female climacteric states Active Problem 03/19/2020 2.16.840.1.164450.4.391.11.11559 Benign essential hypertension Active Problem 2.16.840.1.642414.4.391.11.2 2568 Other and unspecified hyperlipidemia Active Problem 2.16.840.1.349309.4.391.11.2 2568 Obesity (BMI 30-39.9) Active Problem 03/19/2020 2.16.840.1.052461.4.391.11.2 2568 Uncontrolled hypertension Acti ve Problem 05/2018 2.16.840.1.437631.4.391.11.2 2568 Bronchitis, allergic, unspecified asthma severity, uncomplicated Active Prob bryce 10/20/2018 2.16.840.1.298069.4.391.11.07013 COPD exacerbation Active Problem 10/20/2018 2.16.840.1.575279.4.391.11.2 2568 Moderate persistent asthmatic bronchitis with acute exacerbation Active Prob bryce 03/19/2020 2.16.840.1.728083.4.391.11.21643 Altered mental status, unspecified alter ed mental status type Active Prob bryce 10/20/2018 2.16.840.1.127996.4.391.11.96057 Osteoarthritis, generalized Ac tive Problem 2.16.840.1.492862.4.391.11.2 2568 Arthritis Active Problem 06/11/2019 2.16.840.1.961003.4.391.11.40052 Other chronic pain Active Problem 03/19/2020 2.16.840.1.299322.4.391.11.2 2568 Postmenopausal bleeding Active Problem 03/19/2020 2.16.840.1.763171.4.391.11.2 2568 Chest pain, unspecified type A ctive Diagnosis 0 10/20/2016 2.16.840.1.371179.4.391.11.2 2568 Abdominal pain, unspecified location Active Diagnosis 0 10/20/2016 2.16.840.1.202083.4.391.11.88643 Encounter for immunization Act nancy Diagnosis 1 05/22/2018 2.16.840.1.930352.4.391.11.2 2568 Vitamin D deficiency Active Problem 03/19/2020 2.16.840.1.271306.4.391.11.2 2568 Vitamin B 12 deficiency Active Diagnosis 12/29/2018 2.16.840.1.018415.4.391.11.2 2568 Encounter for screening Active Diagnosis 12/29/2018 2.16.840.1.425927.4.391.11.2 2568 Encounter for annual general medical exa mination with abnormal findings in adult Active Diagnosis 07/17/2019 2.16.840.1.574982.4.391.11.72939 Generalized edema Active Diagnosis 10/11/2017 2.16.840.1.222004.4.391.11.2 2568 Shortness of breath Active Diagnosis 10/11/2017 2.16.840.1.934004.4.391.11.2 2568 Encounter for general adult medical exam ination with abnormal findings Active Diag nosis 08/17/2017 2.16.840.1.557154.4.391.11.74442 Arthralgia, unspecified joint Active Diagnosis 1 06/15/2017 2.16.840.1.747359.4.391.11.2 2568 Suicide ideation Active Diagnosis 09/29/2018 2.16.840.1.096485.4.391.11.2 2568 Cough Active Diagnosis 12/23/2017 2.16.840.1.092691.4.391.11.01436 Edema, unspecified type Active Diagnosis 01/19/2018 2.16.840.1.733830.4.391.11.2 2568 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 Active Diag nosis 11/07/2017 2.16.840.1.432132.4.391.11.21234 Acute bronchitis due to other specified organisms Active Diagnosis 06/21/2018 2.16.840.1.665127.4.391.11.11648 Wheezing Active Diagnosis 06/21/2018 2.16.840.1.152522.4.391.11.04057 Low back pain Active Diagnosis 06/21/2018 2.16.840.1.744141.4.391.11.2 2568 BMI 29.0-29.9,adult Active Diagnosis 02/13/2016 2.16.840.1.419128.4.391.11.2 2568 Acute bronchitis Active Diagnosis 02/13/2016 2.16.840.1.112239.4.391.11.2 2568 Community acquired pneumonia A ctive Diagnosis 1 2.16.840.1.603338.4.391.11.2 2568 Low back pain with sciatica, sciatica la terality unspecified, unspecified back pain laterality, unspecified chronicity Active Diagnosis 06/22/2016 2.16.840.1.265633.4.391.11.78387 Acute bronchitis, unspecified organism Active Diagnosis 08/08/2016 2.16.840.1.133901.4.391.11.10691 Sigmoid diverticulitis Active Problem 06/11/2019 2.16.840.1.516329.4.391.11.2 2568 Thyroid nodule Active Problem 03/19/2020 2.16.840.1.513599.4.391.11.2 2568 Pain in right leg Active Diagnosis 06/11/2019 2.16.840.1.360634.4.391.11.2 2568 Radicular pain of right lower extremity Active Diagnosis 06/11/2019 2.16.840.1.223924.4.391.11.77015 Rhonchi at right lung base Act nancy Diagnosis 0 06/11/2019 2.16.840.1.458173.4.391.11.2 2568 Other abnormalities of breathing Active Diagnosis 0 06/11/2019 2.16.840.1.723535.4.391.11.2 2568 Dyspnea, unspecified Active Diagnosis 06/11/2019 2.16.840.1.700508.4.391.11.2 2568 Vaginal discharge Active Diagnosis 06/11/2019 2.16.840.1.736273.4.391.11.2 2568 Laryngitis Active Diagnosis 06/11/2019 2.16.840.1.780850.4.391.11.13579 BMI 25.0-25.9,adult Active Diagnosis 07/17/2019 2.16.840.1.807911.4.391.11.2 2568 Severe episode of recurrent major depres sive disorder, without psychotic features Active Problem 03/19/2020 2.16.840.1.904508.4.391.11.98549 Acute idiopathic gout of left hand Active Problem 2.16.840.1.896829.4.391.11.2 2568 Cellulitis of hand Active Diagnosis 09/10/2019 2.16.840.1.626612.4.391.11.2 2568 Acute gout of right foot, unspecified cause Active Problem 03/19/2020 2.16.840.1.724139.4.391.11.21814 Medications Medication Details Route Status Patient Instructions Ordering Provider Order Date Source Xanax 1/2 half tablet Orally Active 0.5 MG Orally the day o f procedure once a day Aguila 03/18/2020 2.16.840.1.325208.4.391.11.36392 Tramadol HCl 1 tablet as needed Orally Active 50 MG Orally Once a day Aguila 03/18/2020 2.16.840.1.192401.4.391.11.80480 PredniSONE 3 tablets a day Orally Active 10 MG Orally Once a day Aguila 01/29/2020 2.16.840.1.300004.4.391.11.99726 Flagyl 1 tablet Orally Active 250 MG Orally Three sachin es a day Aguila 12/09/2019 2.16.840.1.983870.4.391.11.62676 Cipro 1 tablet Orally Active 500 MG Orally every 12 hrs Aguila 12/09/2019 2.16.840.1.199466.4.391.11.36445 Keflex 1 capsule Orally Active 500 MG Orally tid Aguila 07/05/2019 2.16.840.1.520508.4.391.11.92847 Indocin 1 capsule with food or milk Orally Active 25 MG Orally Twice a day Aguila 07/05/2019 2.16.840.1.635045.4.391.11.18099 Omeprazole 1 capsule 30 minute s before morning meal Orally Active 20 MG Orally twice a day (bid) Aguila 07/05/2019 2.16.840.1.113949.4 .391.11. Shingrix as directed Intramuscular Active 50 MCG/0.5ML Intramuscular as directed Aguila 06/17/2019 2.16.840.1.166416.4 .391.11. Prevnar 13 as directed Intramuscular Active - Intramuscular as directed Aguila 06/17/2019 2.16.840.1.307982.4.391.11. Neurontin 1 capsule Orally Active 300 MG Orally tid Aguila 05/17/2019 2.16.840.1.170914.4.391. Azithromycin as directed Orally Active 250 MG Orally daily Aguila 05/17/2019 2.16.840.1.616604.4.391.11. Metronidazole 1 tablet Orally Active 500 MG Orally Three sachin es a day Aguila 05/17/2019 2.16.840.1.867921.4.391.. Neurontin 1 capsule Orally Active 300 MG Orally qhs Aguila 05/17/2019 2.16.840.1.789164.4.391.. HydrALAZINE HCl 1 tablet with food Orally Active 50 mg Orally twice a day (bid) Aguila 03/14/2019 2.16.840.1.292759.4.391.. Tramadol HCl 1 tablet as needed Orally Active 50 mg Orally twice a day (bid) Aguila 03/14/2019 2.16.840.1.007731.4.391.. Ergocalciferol 1 capsule Orally Active 36327 UNIT Orally ONCE A WEEK Aguila 01/24/2019 2.16.840.1.582157.4.391.11. PredniSONE 1 tablet Orally Active 10 mg Orally Once a day Aguila 01/23/2019 2.16.840.1.899280.4.391.11. Losartan Potassium 1 tablet Orally Active 100 mg Orally Once a day Aguila 01/03/2019 2.16.840.1.861038.4.391.11.21868 Biaxin 1 tablet Orally Active 500 mg Orally every 12 hrs Aguila 08/28/2018 2.16.840.1.879203.4.391. Medrol (Neo) as directed Orally Active 4 mg Orally as directed Aguila 08/28/2018 2.16.840.1.662951.4.391. PredniSONE 2 tablet Orally Active 20 mg Orally Once a day Aguila 08/06/2018 2.16.840.1.788456.4.391. Pulmicort 2 ml Inhalation Active 0.5 MG/2ML Inhalation t wice a day (bid) Aguila 08/06/2018 2.16.840.1.231293.4.391. Promethazine-DM 5 ml as needed Orally Active 6.25-15 MG/5ML Orally every 6 hrs Aguila 07/05/2018 2.16.840.1.283458.4.391. Medrol (Neo) 1 tablet Orally Active 4 mg Orally as directed Aguila 07/05/2018 2.16.840.1.759123.4.391. Ceftin 1 tablet Orally Active 500 mg Orally every 12 hrs Aguila 07/05/2018 2.16.840.1.870591.4.391. Tylenol/Codeine #4 1 tablet as needed Orally Active 300-60 MG Orally four times a day (qid) Aguila 06/22/2018 2.16.840.1.046541.4 .391. Medrol (Neo) 1 tablet by mouth Active 4 mg by mouth as direct ed Aguila 06/18/2018 2.16.840.1.716254.4.391.. Promethazine VC/Codeine 5 ml a s needed Orally Active 5-6.25-10 MG/5ML Orally every 6 hrs Aguila 06/18/2018 2.16.840.1.343845.4.391. Vantin 1 tablet with food Orally Active 200 MG Orally every 12 hrs Aguila 06/18/2018 2.16.840.1.930039.4.391.68 Tramadol HCl 1 tablet as needed Orally Active 50 mg Orally every 6 hrs Aguila 06/18/2018 2.16.840.1.171500.4.391.. Flexeril 1 tablet as needed Orally Active 10 mg Orally twice a day (bid) Aguila 04/03/2018 2.16.840.1.924489.4.391.11.08037 Medrol (Neo) as directed Orally Active 4 mg Orally as directed Aguila 04/03/2018 2.16.840.1.892320.4.391.. Avapro 1 tablet Orally Active 300 MG Orally Once a da y Aguila 01/15/2018 2.16.840.1.591911.4.391.. Trelegy Ellipta 1 puff Inhalation Active 100-62.5-25 MCG/INH Inhalation Once a day Aguila 12/13/2017 2.16.840.1.686901.4 .391.. Promethazine-Codeine 5 ml as n eeded Orally Active 6.25-10 MG/5ML Orally every 6 hrs Aguila 12/13/2017 2.16.840.1.009291.4.391. Vantin 1 tablet Orally Active 200 MG Orally every 12 hrs Aguila 12/13/2017 2.16.840.1.735988.4.391.. PredniSONE 1 tablet Orally Active 10 mg Orally Once a day Aguila 10/13/2017 2.16.840.1.225205.4.391.. Furosemide 1 tablet Orally Active 20 mg Orally Once a day Aguila 10/05/2017 2.16.840.1.910388.4.391.11. Klor-Con 10 1 tablet with food Orally Active 10 MEQ Orally every day (qd) Aguila 10/05/2017 2.16.840.1.666448.4.391. Meloxicam 1 tablet at bedtime Orally Active 15 MG Orally Once a day Aguila 09/18/2017 2.16.840.1.344347.4.391. Estradiol 1 tablet Orally Active 1 MG Orally Daily for T hree Weeks, 1 Week off Aguila 09/06/2017 2.16.840.1.934423.4.391..67323 Combivent Respimat 1 puff Inhalation Active 20-100 MCG/ACT Inhalation as needed (prn) Aguila 09/04/2017 2.16.840.1.987416.4 .391.11.92413 Amlodipine Besylate 1 tablet Orally Active 5 MG Orally Once a day Aguila 09/04/2017 2.16.840.1.175523.4.391..65163 Carafate 10 ml on an empty st omach before meals Orally Active 1 GM/10ML Orally Twice a day Aguila 09/04/2017 2.16.840.1.091975.4 .391.68 Amlodipine Besylate 1 tablet Orally Active 10 mg Orally Once a day Aguila 09/04/2017 2.16.840.1.904279.4.391.68 Amlodipine Besylate 1 tablet Orally Active 10 MG Orally Once a day Aguila 08/04/2017 2.16.840.1.683136.4.391..63857 Amlodipine Besylate 1 tablet Orally Active 5 MG Orally Once a day Aguila 08/04/2017 2.16.840.1.395410.4.391.. Toprol XL 1 tablet Orally Active 100 mg Orally twice a d ay (bid) Aguila 08/02/2017 2.16.840.1.702899.4.391..90134 Medrol (Neo) as directed Orally Active 4 mg Orally as directed Aguila 08/02/2017 2.16.840.1.774819.4.391.11.36659 Tylenol/Codeine #3 1 tablet as needed Orally Active 300-30 MG Orally every 6 hrs Aguila 08/02/2017 2.16.840.1.454000.4.391. Ceftin 1 tablet Orally Active 500 MG Orally Twice a d ay Aguila 05/18/2017 2.16.840.1.418939.4.391.11.81725 Estradiol 1 tablet Orally Active 0.5 MG Orally Once a da y Aguila 03/08/2017 2.16.840.1.132105.4.391.11.78279 PredniSONE 1 tablet Orally Active 10 MG Orally Once a day Aguila 03/08/2017 2.16.840.1.647084.4.391.11.61192 Estradiol 1 tablet Orally Active 0.5 MG Orally Once a da y Aguila 03/08/2017 2.16.840.1.541214.4.391.11.14709 Toprol XL 1 tablet Orally Active 100 MG Orally Once a da y Aguila 02/08/2017 2.16.840.1.896736.4.391.11.34622 Myrbetriq 1 tablet Orally Active 25 MG Orally Once a day Aguila 02/08/2017 2.16.840.1.527931.4.391.11.12339 Premarin 1 tablet Orally Active 0.625 MG Orally once a day Aguila 02/08/2017 2.16.840.1.233759.4.391.11.12864 Cipro 1 tablet Orally Active 500 MG Orally Twice a d ay [place] 02/08/2017 2.16.840.1.570562.4.391.11.26017 Premarin TAKE ONE TABLET BY [facility] DAILY NA Active 0. 45 Aguila 02/08/2017 2.16.840.1.269916.4.391.11.82786 Flagyl 1 tablet Orally Active 500 MG Orally every 8 h rs Aguila 02/08/2017 2.16.840.1.330672.4.391.11.22508 Premarin 1 tablet Orally Active 0.625 MG Orally once a day Aguila 02/08/2017 2.16.840.1.678700.4.391.11.01491 Toprol XL 1 tablet Orally Active 100 MG Orally Once a da y Aguila 02/08/2017 2.16.840.1.138805.4.391.11.29395 Medrol (Neo) as directed Orally Active 4 MG Orally as directed Aguila 12/27/2016 2.16.840.1.328665.4.391.11.69112 Promethazine-Codeine 5 ml as n eeded Orally Active 10-6.25 MG/5ML Orally every 6 hrs Aguila 12/27/2016 2.16.840.1.782162.4.391.11.80520 DuoNeb 3 ml Inhalation Active 0.5-2.5 (3) MG/3ML Inha lation every 6 hrs Aguila 12/27/2016 2.16.840.1.731751.4.391.11.45454 Biaxin 1 tablet Orally Active 500 MG Orally every 12 hrs Aguila 12/27/2016 2.16.840.1.036890.4.391.11.79037 DuoNeb 3 ml Inhalation Active 0.5-2.5 (3) MG/3ML Inha lation as needed (prn) Aguila 12/27/2016 2.16.840.1.258852.4.391.11.58647 DuoNeb 3 ml Inhalation Active 0.5-2.5 (3) MG/3ML Inha lation every 6 hrs Aguila 12/27/2016 2.16.840.1.392663.4.391.11.47578 Ditropan XL as directed Orally Active 5 MG Orally Agulia 10/11/2016 2.16.840.1.812147.4.391..14239 Carafate 1 tablet on an empty stomach Orally Active 1 GM Orally Twice a day Aguila 08/01/2016 2.16.840.1.614449.4.391.11.60996 Medrol (Neo) as directed Orally Active 4 MG Orally as directed Aguila 07/06/2016 2.16.840.1.686838.4.391.11.76585 Guaiatussin AC 5 ml Orally Active 100-10 MG/5ML Orally ev sean 4 hrs Aguila 07/06/2016 2.16.840.1.151989.4.391.. Breo Ellipta 1 puff Inhalation Active 200-25 MCG/INH Inhalati on Once a day Aguila 07/06/2016 2.16.840.1.400296.4.391.11. Astelin 1 puff in each nostril Nasally Active 137 MCG/SPRAY Nasally Twice a day Aguila 06/21/2016 2.16.840.1.006371.4.391.11.39902 Combivent Respimat 1 puff Inhalation Active 20-100 MCG/ACT Inhalation Four times a day Aguila 06/21/2016 2.16.840.1.250778.4 .391..48407 Astelin 1 puff in each nostril Nasally Active 137 MCG/SPRAY Nasally Twice a day Aguila 06/21/2016 2.16.840.1.498189.4.391..31317 Combivent Respimat 1 puff Inhalation Active 20-100 MCG/ACT Inhalation Four times a day Aguila 06/21/2016 2.16.840.1.764795.4 .391..27460 Tessalon 1 capsule as needed Orally Active 200 MG Orally Three times a day Aguila 06/21/2016 2.16.840.1.473429.4.391..95911 Biaxin 1 tablet Orally Active 500 MG Orally every 12 hrs Aguila 06/21/2016 2.16.840.1.892448.4.391.68 Levaquin 1 tablet Orally Active 500 MG Orally Once a da y Aguila 05/06/2016 2.16.840.1.682809.4.391. Promethazine-Codeine 5 ml as n eeded Orally Active 6.25-10 MG/5ML Orally every 6 hrs Aguila 05/06/2016 2.16.840.1.989304.4.391..97496 Medrol (Neo) as directed Orally Active 4 MG Orally as directed Aguila 05/06/2016 2.16.840.1.739761.4.391..26771 Zithromax Tri-Neo 1 tablet by mouth Active 500 MG by mouth daily Aguila 05/04/2016 2.16.840.1.731721.4.391.68 Promethazine-DM 5 ml as needed Orally Active 6.25-15 MG/5ML Orally every 6 hrs Aguila 05/04/2016 2.16.840.1.421118.4.391. Zithromax Tri-Neo 1 tablet by mouth Active 500 MG by mouth daily Aguila 05/03/2016 2.16.840.1.236873.4.391. Promethazine-DM 5 ml as needed Orally Active 6.25-15 MG/5ML Orally every 6 hrs Aguila 05/03/2016 2.16.840.1.843287.4.391. Toprol XL 1 tablet Orally Active 50 mg Orally Once a day Aguila 02/09/2016 2.16.840.1.367317.4.391. Toprol XL 1 tablet Orally Active 50 mg Orally Once a day Aguila 02/09/2016 2.16.840.1.668123.4.391. Biaxin 1 tablet Orally Active 500 mg Orally every 12 hrs Aguila 02/09/2016 2.16840.1.438997.4.391. Promethazine-DM 5 ml as needed Orally Active 6.25-15 MG/5ML Orally every 6 hrs Aguila 02/09/2016 2.16.840.1.507189.4.391. Nexium TAKE ONE CAPSULE BY PORSHA TH DAILY NA Active 40 Aguila 840.1.202755.4.391 Premarin TAKE ONE TABLET BY MO UTH DAILY NA Active 0. 45 Aguila 840.1.553062.4.391. Duloxetine HCl TAKE ONE CAPSUL E BY MOUTH DAILY NA Active 60 MG Aguila 840.1.479526.4.391. PredniSONE 1 tablet Orally Active 5 MG Orally Once a day Aguila 840.1.041055.4.391 Maxzide-25 TAKE ONE TABLET BY MOUTH DAILY NA Active 37 .5-25 Aguila 840.1.958409.4.391. Estradiol TAKE ONE TABLET BY M OUTH DAILY FOR THREE WEEKS - THEN STOP FOR ONE WEEK NA Active 1 MG Aguila 840.1.092867.4.391.11.2 2568 hydrochlorothiazide 25 mg tablet 1 tablet NA Active on ce a day Aguila 07.07.830.1.101913.4.391 trazodone 50 mg tablet 1 tablet NA Active 100 mg once every night Aguila 07.07.830.1.453284.4.391 Metoprolol Succinate 1 tablet by mouth Active 100 mg by mouth twice a day (bid) Aguila 07.07.830.1.359668.4.391 Losartan Potassium 1 tablet Orally Active 50 MG Orally Once a day Aguila 07.07.830.1.896864.4.391 Tylenol/Codeine #3 TAKE ONE TA BLET BY MOUTH EVERY 6 HOURS NEEDED NA Active 300-30 Aguila 07.07.830.1.237424.4.391 Pantoprazole Sodium 1 tablet Orally Active 40 MG Orally Once a day Aguila 07.07.830.1.344896.4.391 Azelastine HCl SPRAY ONE SPRAY IN EACH NOSTRIL TWICE DAILY (SUBSTITUTE FOR ASTELIN) NA Active 0.1 % Aguila .807047.439111.2 2567 Alprazolam 1/2 half tablet Orally Active 0.25 MG Orally Twice a day Aguila 07.07.830.1.365188.4.391 Avapro 1 tablet Orally Active 300 MG Orally Once a da y Aguila 07.07.830.1.899533.4.391 Doxycycline Hyclate 1 tablet Orally Active 20 mg Orally four times a day (qid) Aguila 07.07.830.1.784154.4.391 Tylenol 1 tablet as needed Orally Active 325 MG Orally as needed (prn) Aguila 07.07.830.1.042357.4.391 Metoprolol Succinate 1 tablet by mouth Active 100 mg by mouth twice a day (bid) Aguila 07.07.830.1.398820.4.391 alprazolam 0.25 mg Tab 1 capsu le orally Active 1 tablet orally twice a day (bid) Aguila .840.1.996349.4.391. Triamterene-HCTZ 1 tablet in t he morning Orally Active 37.5-25 MG Orally Once a day Aguila 2.840.1.214964.4.391. Toprol XL TAKE ONE TABLET BY M OUTH DAILY NA No Longer Active 25 Aguila 2.840.1.548645.4.391. Levaquin 1 tablet Orally Active 500 MG Orally ONCE A DA Y FOR 10 DAYS Aguila .840.1.933797.4.391. Tramadol HCl TAKE ONE TABLET B Y MOUTH EVERY 6 HOURS NEEDED FOR 7 DAYS NA Active 50 [place]ul[place] 840.1.836282.4.391 Ciprofloxacin HCl 1 tablet Orally Active 500 MG Orally every 12 hrs Aguila 07.07.830.1.843369.4.391. Sertraline HCl 1 tablet Orally Active 100 MG Orally Once a da y Aguila .0.1.030256.4.391. Metronidazole 1 tablet Orally Active 500 mg Orally twice a d ay (bid) Aguila 840.1.718993.4.391. Omeprazole 1 capsule Orally Active 40 mg Orally Once a day Aguila 840.1.075507.4.391. Tramadol HCl TAKE ONE TABLET B Y MOUTH TWICE A DAY NEEDED NA Active 50 Aguila .840.1.472825.4.391. Tramadol HCl 1 tablet NA Active 50 as needed (prn) [facility] .840.1.796449.4.391. Estradiol 1 tablet Orally Active 1 Orally Daily for Thre e Weeks, 1 Week off Aguila 840.1.863254.4.391. Neurontin 1 capsule Orally Active 300 MG Orally tid Agu[place] .840.1.069671.4.391.11.96543 BusPIRone HCl 1 tablet Orally Active 10 mg Orally once a day Aguila 2.16840.1.518035.4.391.11.55108 Allergies, Adverse Reactions, Alerts Substance Category Reaction Severity Reaction type Status Date Reported Comments Source Influenza Virus Vacc Split PF Adverse Reaction muscle pain Adverse Reaction Active 09/04/2017 2.16.840.1.219485.4.391.11.25770 Aspirin Adverse Reaction Info Not Available Adverse Reaction Active 12/09/2019 2.16.840.1.675495.4.391.11.2 2568 Penicillin Adverse Reaction Info Not Available Adverse Reaction Active 12/09/2019 2.16.840.1.954043.4.391.11.2 2568 Bactrim Tablets Adverse Reacti on Info Not Available Adverse Reaction Active 12/09/2019 2.16.840.1.141952.4.391.11.2 2568 amlodipine Adverse Reaction edema Adverse Reaction Active 12/09/2019 2.16.840.1.729228.4.391.11.2 2568 Immunizations Immunization Date Given Site Status Last Updated Comments Source INFLUENZA II Multi 1 06/03/2017 completed 2.16.840.1.715491.4.391.11.2 2568 MCR INFLUENZA VACCINE 03/08/2017 completed 2.16.840.1.910472.4.391.11.2 2568 Pneumococcal 02/08/2017 completed 2.16.840.1.069149.4.391.11.65076 Results No Data Provided for This Section Pathology Reports No Data Provided for This Section Diagnostic Reports No Data Provided for This Section Consultation Notes No Data Provided for This Section Discharge Summaries No Data Provided for This Section History and Physicals No Data Provided for This Section Vital Signs Vital Sign Value Date Comments Source Weight 142.2 12/09/2019 2.16.840.1.396886.4.391.11.2 2568 Height 65.0 12/09/2019 2.16.840.1.915560.4.391.11.2 2568 Temperature Oral (F) 98.0 F 12/09/2019 2.16.840.1.063853.4.391.11.41505 Heart Rate 69 12/09/2019 2.16.840.1.946738.4.391.11.2 2568 Diastolic (mm Hg) 70 12/09/2019 2.16.840.1.324066.4.391.11.80182 Systolic (mm Hg) 141 12/09/2019 2.16.840.1.124236.4.391.11.36165 Weight 153.5 07/05/2019 2.16.840.1.162028.4.391.11.2 2568 Height 65.0 07/05/2019 2.16.840.1.900899.4.391.11.2 2568 Heart Rate 79 07/05/2019 2.16.840.1.957549.4.391.11.2 2568 Diastolic (mm Hg) 76 07/05/2019 2.16.840.1.936776.4.391.11.77326 Systolic (mm Hg) 152 07/05/2019 2.16.840.1.988232.4.391.11.27585 Weight 152.7 06/17/2019 2.16.840.1.565802.4.391.11.2 2568 Height 65.0 06/17/2019 2.16.840.1.593546.4.391.11.2 2568 Heart Rate 84 06/17/2019 2.16.840.1.872310.4.391.11.2 2568 Diastolic (mm Hg) 8 06/17/2019 2.16.840.1.371204.4.391.11.2 2568 Systolic (mm Hg) 153 06/17/2019 2.16.840.1.343649.4.391.11.59888 Weight 151.5 05/17/2019 2.16.840.1.404072.4.391.11.2 2568 Height 65.0 05/17/2019 2.16.840.1.218746.4.391.11.2 2568 Temperature Oral (F) 97.1 F 05/17/2019 2.16.840.1.668454.4.391.11.32516 Heart Rate 81 05/17/2019 2.16.840.1.602931.4.391.11.2 2568 Diastolic (mm Hg) 63 05/17/2019 2.16.840.1.948220.4.391.11.13628 Systolic (mm Hg) 127 05/17/2019 2.16.840.1.435164.4.391.11.34685 Weight 161.7 03/14/2019 2.16.840.1.749874.4.391.11.2 2568 Height 65.0 03/14/2019 2.16.840.1.328145.4.391.11.2 2568 Temperature Oral (F) 98.0 F 03/14/2019 2.16.840.1.169469.4.391.11.36433 Heart Rate 60 03/14/2019 2.16.840.1.864487.4.391.11.2 2568 Diastolic (mm Hg) 79 03/14/2019 2.16.840.1.530890.4.391.11.39384 Systolic (mm Hg) 177 03/14/2019 2.16.840.1.058794.4.391.11.99952 Weight 165.4 02/06/2019 2.16.840.1.818148.4.391.11.2 2568 Height 65.0 02/06/2019 2.16.840.1.671021.4.391.11.2 2568 Temperature Oral (F) 97.9 F 02/06/2019 2.16.840.1.580822.4.391.11.03007 Heart Rate 61 02/06/2019 2.16.840.1.593577.4.391.11.2 2568 Diastolic (mm Hg) 88 02/06/2019 2.16.840.1.579742.4.391.11.43345 Systolic (mm Hg) 153 02/06/2019 2.16.840.1.434560.4.391.11.37834 Weight 178 01/23/2019 2.16.840.1.296059.4.391.11.2 2568 Height 65.0 01/23/2019 2.16.840.1.184829.4.391.11.2 2568 Temperature Oral (F) 98.1 F 01/23/2019 2.16.840.1.424772.4.391.11.55523 Heart Rate 64 01/23/2019 2.16.840.1.807345.4.391.11.2 2568 Diastolic (mm Hg) 80 01/23/2019 2.16.840.1.114965.4.391.11.04301 Systolic (mm Hg) 156 01/23/2019 2.16.840.1.248506.4.391.11.64335 Weight 183.9 11/08/2018 2.16.840.1.743790.4.391.11.2 2568 Height 65.0 11/08/2018 2.16.840.1.466238.4.391.11.2 2568 Temperature Oral (F) 97.1 F 11/08/2018 2.16.840.1.408246.4.391.11.16498 Heart Rate 66 11/08/2018 2.16.840.1.951163.4.391.11.2 2568 Diastolic (mm Hg) 80 11/08/2018 2.16.840.1.925776.4.391.11.32482 Systolic (mm Hg) 165 11/08/2018 2.16.840.1.650828.4.391.11.43913 Weight 192.5 09/11/2018 2.16.840.1.090862.4.391.11.2 2568 Height 65.0 09/11/2018 2.16.840.1.839046.4.391.11.2 2568 Temperature Oral (F) 97.0 F 09/11/2018 2.16.840.1.095530.4.391.11.55503 Heart Rate 99 09/11/2018 2.16.840.1.294794.4.391.11.2 2568 Diastolic (mm Hg) 89 09/11/2018 2.16.840.1.663974.4.391.11.25902 Systolic (mm Hg) 165 09/11/2018 2.16.840.1.433578.4.391.11.85803 Weight 199.3 08/28/2018 2.16.840.1.427813.4.391.11.2 2568 Height 65.0 08/28/2018 2.16.840.1.310940.4.391.11.2 2568 Temperature Oral (F) 96.4 F 08/28/2018 2.16.840.1.365516.4.391.11.81061 Heart Rate 105 08/28/2018 2.16.840.1.820167.4.391.11.2 2568 Diastolic (mm Hg) 88 08/28/2018 2.16.840.1.237047.4.391.11.41172 Systolic (mm Hg) 157 08/28/2018 2.16.840.1.323421.4.391.11.96357 Weight 189.0 08/06/2018 2.16.840.1.975901.4.391.11.2 2568 Height 65.0 08/06/2018 2.16.840.1.178883.4.391.11.2 2568 Temperature Oral (F) 98.1 F 08/06/2018 2.16.840.1.227083.4.391.11.15446 Heart Rate 79 08/06/2018 2.16.840.1.148858.4.391.11.2 2568 Diastolic (mm Hg) 68 08/06/2018 2.16.840.1.392438.4.391.11.14187 Systolic (mm Hg) 112 08/06/2018 2.16.840.1.969842.4.391.11.91636 Weight 190.0 07/31/2018 2.16.840.1.352096.4.391.11.2 2568 Height 65.0 07/31/2018 2.16.840.1.723610.4.391.11.2 2568 Temperature Oral (F) 96.7 F 07/31/2018 2.16.840.1.526325.4.391.11.12580 Heart Rate 76 07/31/2018 2.16.840.1.584231.4.391.11.2 2568 Diastolic (mm Hg) 70 07/31/2018 2.16.840.1.199452.4.391.11.28119 Systolic (mm Hg) 123 07/31/2018 2.16.840.1.036458.4.391.11.01555 Weight 186.6 07/19/2018 2.16.840.1.455356.4.391.11.2 2568 Height 65.0 07/19/2018 2.16.840.1.654893.4.391.11.2 2568 Temperature Oral (F) 98.8 F 07/19/2018 2.16.840.1.289220.4.391.11.49551 Heart Rate 72 07/19/2018 2.16.840.1.630486.4.391.11.2 2568 Diastolic (mm Hg) 64 07/19/2018 2.16.840.1.411269.4.391.11.82744 Systolic (mm Hg) 95 07/19/2018 2.16.840.1.078896.4.391.11.2 2568 Weight 192.2 07/05/2018 2.16.840.1.585897.4.391.11.2 2568 Height 65.0 07/05/2018 2.16.840.1.619138.4.391.11.2 2568 Temperature Oral (F) 98.7 F 07/05/2018 2.16.840.1.830675.4.391.11.25410 Heart Rate 74 07/05/2018 2.16.840.1.390963.4.391.11.2 2568 Diastolic (mm Hg) 62 07/05/2018 2.16.840.1.460525.4.391.11.51145 Systolic (mm Hg) 116 07/05/2018 2.16.840.1.848339.4.391.11.27071 Weight 192.3 06/18/2018 2.16.840.1.829647.4.391.11.2 2568 Height 65.0 06/18/2018 2.16.840.1.721953.4.391.11.2 2568 Temperature Oral (F) 99.2 F 06/18/2018 2.16.840.1.145314.4.391.11.74403 Heart Rate 95 06/18/2018 2.16.840.1.985213.4.391.11.2 2568 Diastolic (mm Hg) 65 06/18/2018 2.16.840.1.511841.4.391.11.57992 Systolic (mm Hg) 112 06/18/2018 2.16.840.1.566577.4.391.11.14655 Weight 190.1 04/03/2018 2.16.840.1.440626.4.391.11.2 2568 Height 65.0 04/03/2018 2.16.840.1.120449.4.391.11.2 2568 Temperature Oral (F) 97.3 F 04/03/2018 2.16.840.1.946408.4.391.11.10415 Heart Rate 71 04/03/2018 2.16.840.1.060074.4.391.11.2 2568 Diastolic (mm Hg) 84 04/03/2018 2.16.840.1.061320.4.391.11.64596 Systolic (mm Hg) 142 04/03/2018 2.16.840.1.428636.4.391.11.75020 Weight 193.7 02/12/2018 2.16.840.1.052422.4.391.11.2 2568 Height 65.0 02/12/2018 2.16.840.1.322429.4.391.11.2 2568 Temperature Oral (F) 97.9 F 02/12/2018 2.16.840.1.112598.4.391.11.77325 Heart Rate 70 02/12/2018 2.16.840.1.421208.4.391.11.2 2568 Diastolic (mm Hg) 83 02/12/2018 2.16.840.1.037934.4.391.11.92908 Systolic (mm Hg) 156 02/12/2018 2.16.840.1.361777.4.391.11.43282 Weight 194.2 01/15/2018 2.16.840.1.468578.4.391.11.2 2568 Height 65.0 01/15/2018 2.16.840.1.127135.4.391.11.2 2568 Temperature Oral (F) 97.7 F 01/15/2018 2.16.840.1.148090.4.391.11.91502 Heart Rate 72 01/15/2018 2.16.840.1.152830.4.391.11.2 2568 Diastolic (mm Hg) 81 01/15/2018 2.16.840.1.101584.4.391.11.00770 Systolic (mm Hg) 141 01/15/2018 2.16.840.1.797109.4.391.11.34235 Weight 189.4 12/18/2017 2.16.840.1.014265.4.391.11.2 2568 Height 65.0 12/18/2017 2.16.840.1.192181.4.391.11.2 2568 Temperature Oral (F) 98.2 F 12/18/2017 2.16.840.1.828432.4.391.11.07704 Heart Rate 75 12/18/2017 2.16.840.1.252897.4.391.11.2 2568 Diastolic (mm Hg) 79 12/18/2017 2.16.840.1.385865.4.391.11.87258 Systolic (mm Hg) 143 12/18/2017 2.16.840.1.695705.4.391.11.60768 Weight 188.8 12/13/2017 2.16.840.1.419627.4.391.11.2 2568 Height 65.0 12/13/2017 2.16.840.1.816421.4.391.11.2 2568 Heart Rate 74 12/13/2017 2.16.840.1.835924.4.391.11.2 2568 Diastolic (mm Hg) 75 12/13/2017 2.16.840.1.649831.4.391.11.12211 Systolic (mm Hg) 155 12/13/2017 2.16.840.1.633118.4.391.11.85959 Weight 186.6 11/13/2017 2.16.840.1.044838.4.391.11.2 2568 Height 65.0 11/13/2017 2.16.840.1.825066.4.391.11.2 2568 Temperature Oral (F) 99.0 F 11/13/2017 2.16.840.1.082831.4.391.11.38526 Heart Rate 60 11/13/2017 2.16.840.1.366681.4.391.11.2 2568 Diastolic (mm Hg) 73 11/13/2017 2.16.840.1.440420.4.391.11.67004 Systolic (mm Hg) 137 11/13/2017 2.16.840.1.981151.4.391.11.93852 Weight 190.2 10/13/2017 2.16.840.1.276140.4.391.11.2 2568 Height 65.0 10/13/2017 2.16.840.1.586976.4.391.11.2 2568 Temperature Oral (F) 99.2 F 10/13/2017 2.16.840.1.178974.4.391.11.26931 Heart Rate 78 10/13/2017 2.16.840.1.066059.4.391.11.2 2568 Diastolic (mm Hg) 75 10/13/2017 2.16.840.1.649162.4.391.11.71650 Systolic (mm Hg) 140 10/13/2017 2.16.840.1.185759.4.391.11.93907 Weight 190.0 10/05/2017 2.16.840.1.729670.4.391.11.2 2568 Height 65.0 10/05/2017 2.16.840.1.801356.4.391.11.2 2568 Temperature Oral (F) 98.5 F 10/05/2017 2.16.840.1.584597.4.391.11.83489 Heart Rate 78 10/05/2017 2.16.840.1.741523.4.391.11.2 2568 Diastolic (mm Hg) 74 10/05/2017 2.16.840.1.479489.4.391.11.79780 Systolic (mm Hg) 133 10/05/2017 2.16.840.1.682454.4.391.11.84343 Weight 186.0 09/18/2017 2.16.840.1.378427.4.391.11.2 2568 Height 65.0 09/18/2017 2.16.840.1.460135.4.391.11.2 2568 Temperature Oral (F) 99.1 F 09/18/2017 2.16.840.1.406149.4.391.11.55920 Heart Rate 78 09/18/2017 2.16.840.1.245074.4.391.11.2 2568 Diastolic (mm Hg) 80 09/18/2017 2.16.840.1.129870.4.391.11.77732 Systolic (mm Hg) 137 09/18/2017 2.16.840.1.254762.4.391.11.57154 Weight 193.6 09/04/2017 2.16.840.1.352329.4.391.11.2 2568 Height 65.0 09/04/2017 2.16.840.1.942316.4.391.11.2 2568 Temperature Oral (F) 98.4 F 09/04/2017 2.16.840.1.314763.4.391.11.17404 Heart Rate 76 09/04/2017 2.16.840.1.810774.4.391.11.2 2568 Diastolic (mm Hg) 96 09/04/2017 2.16.840.1.108549.4.391.11.42235 Systolic (mm Hg) 156 09/04/2017 2.16.840.1.610471.4.391.11.37639 Weight 192.7 08/04/2017 2.16.840.1.415634.4.391.11.2 2568 Height 65.0 08/04/2017 2.16.840.1.834968.4.391.11.2 2568 Temperature Oral (F) 98.7 F 08/04/2017 2.16.840.1.580034.4.391.11.98906 Heart Rate 66 08/04/2017 2.16.840.1.614703.4.391.11.2 2568 Diastolic (mm Hg) 88 08/04/2017 2.16.840.1.310845.4.391.11.08973 Systolic (mm Hg) 174 08/04/2017 2.16.840.1.526832.4.391.11.19791 Weight 192.6 08/02/2017 2.16.840.1.273971.4.391.11.2 2568 Height 65.0 08/02/2017 2.16.840.1.274426.4.391.11.2 2568 Temperature Oral (F) 98.3 F 08/02/2017 2.16.840.1.413409.4.391.11.62092 Heart Rate 79 08/02/2017 2.16.840.1.696038.4.391.11.2 2568 Diastolic (mm Hg) 90 08/02/2017 2.16.840.1.417751.4.391.11.02685 Systolic (mm Hg) 174 08/02/2017 2.16.840.1.632084.4.391.11.55821 Weight 192.2 03/08/2017 2.16.840.1.070518.4.391.11.2 2568 Height 65.0 03/08/2017 2.16.840.1.657999.4.391.11.2 2568 Temperature Oral (F) 98.9 F 03/08/2017 2.16.840.1.218719.4.391.11.15524 Heart Rate 67 03/08/2017 2.16.840.1.664910.4.391.11.2 2568 Diastolic (mm Hg) 79 03/08/2017 2.16.840.1.210100.4.391.11.08836 Systolic (mm Hg) 137 03/08/2017 2.16.840.1.902784.4.391.11.05033 Weight 195.4 02/08/2017 2.16.840.1.583706.4.391.11.2 2568 Height 65.0 02/08/2017 2.16.840.1.247778.4.391.11.2 2568 Temperature Oral (F) 98.8 F 02/08/2017 2.16.840.1.025177.4.391.11.79279 Heart Rate 79 02/08/2017 2.16.840.1.876597.4.391.11.2 2568 Diastolic (mm Hg) 76 02/08/2017 2.16.840.1.442487.4.391.11.78361 Systolic (mm Hg) 151 02/08/2017 2.16.840.1.321258.4.391.11.69483 Weight 189 12/27/2016 2.16.840.1.709114.4.391.11.2 2568 Height 65.0 12/27/2016 2.16.840.1.412795.4.391.11.2 2568 Temperature Oral (F) 99.3 F 12/27/2016 2.16.840.1.977259.4.391.11.27857 Heart Rate 78 12/27/2016 2.16.840.1.066754.4.391.11.2 2568 Diastolic (mm Hg) 83 12/27/2016 2.16.840.1.741454.4.391.11.26886 Systolic (mm Hg) 143 12/27/2016 2.16.840.1.574573.4.391.11.15046 Weight 176.0 10/11/2016 2.16.840.1.238449.4.391.11.2 2568 Height 65.0 10/11/2016 2.16.840.1.790137.4.391.11.2 2568 Heart Rate 70 10/11/2016 2.16.840.1.871205.4.391.11.2 2568 Diastolic (mm Hg) 76 10/11/2016 2.16.840.1.228954.4.391.11.68267 Systolic (mm Hg) 136 10/11/2016 2.16.840.1.205093.4.391.11.15626 Weight 181.0 08/22/2016 2.16.840.1.474857.4.391.11.2 2568 Height 65.0 08/22/2016 2.16.840.1.996143.4.391.11.2 2568 Temperature Oral (F) 98.5 F 08/22/2016 2.16.840.1.929389.4.391.11.67210 Heart Rate 78 08/22/2016 2.16.840.1.273909.4.391.11.2 2568 Diastolic (mm Hg) 77 08/22/2016 2.16.840.1.929313.4.391.11.70852 Systolic (mm Hg) 147 08/22/2016 2.16.840.1.868661.4.391.11.74804 Weight 183.0 08/16/2016 2.16.840.1.432035.4.391.11.2 2568 Height 65.0 08/16/2016 2.16.840.1.579761.4.391.11.2 2568 Temperature Oral (F) 98.6 F 08/16/2016 2.16.840.1.800426.4.391.11.21694 Heart Rate 73 08/16/2016 2.16.840.1.529844.4.391.11.2 2568 Diastolic (mm Hg) 78 08/16/2016 2.16.840.1.495515.4.391.11.60852 Systolic (mm Hg) 142 08/16/2016 2.16.840.1.621957.4.391.11.86929 Weight 179.3 08/01/2016 2.16.840.1.073501.4.391.11.2 2568 Height 65.0 08/01/2016 2.16.840.1.902189.4.391.11.2 2568 Temperature Oral (F) 98.2 F 08/01/2016 2.16.840.1.820406.4.391.11.04749 Heart Rate 77 08/01/2016 2.16.840.1.775621.4.391.11.2 2568 Diastolic (mm Hg) 90 08/01/2016 2.16.840.1.133615.4.391.11.46944 Systolic (mm Hg) 165 08/01/2016 2.16.840.1.103769.4.391.11.62562 Weight 182.7 07/06/2016 2.16.840.1.019327.4.391.11.2 2568 Height 65.0 07/06/2016 2.16.840.1.649937.4.391.11.2 2568 Temperature Oral (F) 97.8 F 07/06/2016 2.16.840.1.023522.4.391.11.14092 Heart Rate 70 07/06/2016 2.16.840.1.581788.4.391.11.2 2568 Diastolic (mm Hg) 64 07/06/2016 2.16.840.1.072676.4.391.11.39069 Systolic (mm Hg) 150 07/06/2016 2.16.840.1.177557.4.391.11.76797 Weight 184.3 06/21/2016 2.16.840.1.011785.4.391.11.2 2568 Height 65.0 06/21/2016 2.16.840.1.449187.4.391.11.2 2568 Temperature Oral (F) 98.1 F 06/21/2016 2.16.840.1.355369.4.391.11.53574 Heart Rate 88 06/21/2016 2.16.840.1.995958.4.391.11.2 2568 Diastolic (mm Hg) 87 06/21/2016 2.16.840.1.939627.4.391.11.00760 Systolic (mm Hg) 147 06/21/2016 2.16.840.1.509291.4.391.11.46886 Weight 176.0 05/06/2016 2.16.840.1.470553.4.391.11.2 2568 Height 64.4 05/06/2016 2.16.840.1.056728.4.391.11.2 2568 Heart Rate 90 05/06/2016 2.16.840.1.312688.4.391.11.2 2568 Diastolic (mm Hg) 79 05/06/2016 2.16.840.1.851736.4.391.11.52151 Systolic (mm Hg) 146 05/06/2016 2.16.840.1.159561.4.391.11.95363 Weight 174.5 02/09/2016 2.16.840.1.486577.4.391.11.2 2568 Height 64.4 02/09/2016 2.16.840.1.041502.4.391.11.2 2568 Temperature Oral (F) 98.5 F 02/09/2016 2.16.840.1.343283.4.391.11.68911 Heart Rate 74 02/09/2016 2.16.840.1.934507.4.391.11.2 2568 Diastolic (mm Hg) 86 02/09/2016 2.16.840.1.185966.4.391.11.12695 Systolic (mm Hg) 158 02/09/2016 2.16.840.1.439484.4.391.11.14981 Encounters Location Location Details Encounter Type Encounter Number Reason For Visit Attending Provider ADM Date DC Date Status Source [facility] PHYSICAL [id number] 02/09/20 16 02/09/2016 2.16.840.1.502502.4.391.11.97352 [facility] PHYSICAL [id number]-x8nh-12935c5m1x4i 02/09/20 16 02/09/2016 2.16.840.1.792369.4.391.11.69587 [facility] PHYSICAL 13x209b9-kp21-25kc-8n09-0k5bo9226h08 02/09/20 16 02/09/2016 2.16.840.1.147113.4.391.11.93572 [facility] PHYSICAL fvp46ks2-31li-6447-za14-epb9f72q6cid 02/09/20 16 02/09/2016 2.16.840.1.161637.4.391.11.82555 [facility] PHYSICAL zd818v5y-2n61-6280-z460-s14h18776vcj 02/09/20 16 02/09/2016 2.16.840.1.781363.4.391.11.40407 [facility] PHYSICAL 427t3frn-0231-9y84-cwz5-e51izs11qso6 02/09/20 16 02/09/2016 2.16.840.1.104732.4.391.11.04342 [facility] PHYSICAL 3t7k8716-66q3-8n65-3691-r4gj25c534d8 02/09/20 16 02/09/2016 2.16.840.1.307785.4.391.11.25069 [facility] Unknown [id number] 02/22/20 16 02/22/2016 2.16.840.1.600754.4.391.11.15630 [facility] Unknown [id number] 02/22/20 16 02/22/2016 2.16.840.1.877790.4.391.11.12097 [facility] Unknown [id number] 02/22/20 16 02/22/2016 2.16.840.1.255724.4.391.11.16422 [facility] Unknown [id number] 02/22/20 16 02/22/2016 2.16.840.1.136316.4.391.11.91329 [facility] Unknown [id number]-j725-4wj3c4t12g8f 02/22/20 16 02/22/2016 2.16.840.1.472244.4.391.11.08232 [facility] Unknown [id number] 02/22/20 16 02/22/2016 2.16.840.1.342148.4.391.11.10023 [facility] Unknown [id number] 05/03/20 16 05/03/2016 2.16.840.1.303852.4.391.11.05783 [facility] Unknown [id number] 05/03/20 16 05/03/2016 2.16.840.1.645310.4.391.11.77111 [facility] Unknown [id number] 05/03/20 16 05/03/2016 2.16.840.1.162795.4.391.11.13399 [facility] Unknown [id number] 05/03/20 16 05/03/2016 2.16.840.1.538295.4.391.11.24527 [facility] Unknown [id number] 05/03/20 16 05/03/2016 2.16.840.1.763972.4.391.11.78250 [facility] Medication pj1r2yn7-o8u6-765p-6ah3-8391g89gpgzb 05/04/20 16 05/04/2016 2.16.840.1.568890.4.391.11.71836 [facility] Medication j7o46o68-smeg-06q5-3y31-0yku1946fxe5 05/04/20 16 05/04/2016 2.16.840.1.572849.4.391.11.75760 [facility] Medication n7zhj35d-nf8w-7162-0g35-o222p63nrf8a 05/04/20 16 05/04/2016 2.16.840.1.661767.4.391.11.82762 [facility] Medication [id number] 05/04/20 16 05/04/2016 2.16.840.1.750218.4.391.11.07312 [facility] Sick Visit [id number]-t74g-2p4n8i5544k4 05/06/20 16 05/06/2016 2.16.840.1.670243.4.391.11.74714 [facility] Sick Visit [id number] 05/06/20 16 05/06/2016 2.16.840.1.142102.4.391.11.35964 [facility] Sick Visit [id number] 05/06/20 16 05/06/2016 2.16.840.1.580913.4.391.11.85282 [facility] Unknown [id number] 06/21/19 17 06/21/2016 2.16.840.1.758692.4.391.11.77117 [facility] Unknown [id number] 06/21/19 17 06/21/2016 2.16.840.1.644870.4.391.11.16926 [facility] still having SOB [id number] 07/06/19 17 07/06/2016 2.16.840.1.269284.4.391.11.40362 Procedures No Data Provided for This Section Assessment and Plan No Data Provided for This Section Plan of Care No Data Provided for This Section Social History Social History Date Source Social History ElementQualifiersDate Rep orted Do you take Aspirin, or a blood thinner . No I do not take aspirin / or a blood thinner Jul 06, 2016 Tobacco Use: . Are you a: never smoker Jul 06, 2016 Marital Status: . Jul 06, 2016 Caffeine intake? . Status: Yes, What type: Coffee, Tea, 1 - 2 cup(s) a day, 1 can/bottle a day Jul 06, 2016 Do you exercise? . Answer: Yes Jul 06, 2016 Do you drink alcohol? . Status: Yes, Type: Wine, How Often? S ocially, Quantity: 1 Jul 06, 2016 Travel outside [place]: . 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 06, 2016 07/06/2016 2.16.840.1.159292.4.391.11.03865 Family History Value Date S ource QualifierDescriptionCommentDate Reported Maternal Grandmother Comment not available Jul 06, 2016 Paternal Grandmother Comment not available Jul 06, 2016 Siblings Comment not available Jul 06, 2016 Maternal Grandfather Comment not available Jul 06, 2016 Children Comment not available Jul 06, 2016 Father colon cancer Jul 06, 2016 Paternal Grandfather Comment not available Jul 06, 2016 Mother breast cancer, diabetes Jul 06, 2016 Other: Comment not available Jul 06, 2016 07/12/2016 2.16.840.1.322558.4.391.11.90144 QualifierDescriptionCommentDate Reported Maternal Grandmother Comment not available Jun 21, 2016 Paternal Grandmother Comment not available Jun 21, 2016 Siblings Comment not available Jun 21, 2016 Maternal Grandfather Comment not available Jun 21, 2016 Children Comment not available Jun 21, 2016 Father colon cancer Jun 21, 2016 Paternal Grandfather Comment not available Jun 21, 2016 Mother breast cancer, diabetes Jun 21, 2016 Other: Comment not available Jun 21, 2016 06/22/2016 2.16.840.1.957390.4.391.11.46193 Advance Directives No Data Provided for This Section Functional Status No Data Provided for This Section
--- NOTE | 2020-04-02 11:31 | Operative Report ---
DATE OF PROCEDURE: 04/02/2020 SURGEON: Jj Valdez MD PREOPERATIVE DIAGNOSIS: Severe L2-3 spinal stenosis with neurogenic claudication, M48.062. POSTOPERATIVE DIAGNOSIS: Severe L2-3 spinal stenosis with neurogenic claudication, M48.062. PROCEDURES: 1. L2 bilateral decompressive laminectomy and L2-3 bilateral medial facetectomies, 47169. 2. L3 bilateral partial decompressive laminectomy, 74831. ANESTHESIA: General. INDICATIONS: The patient is a woman, who presents with a severe L2-3 spinal stenosis with neurogenic claudication, was taken to surgery for bilateral decompressive laminectomy. PROCEDURE IN DETAIL: After induction of general anesthesia, the patient was placed on the operating table in prone position over José Miguel frame. Lumbar region was prepped and draped in sterile fashion. A small midline incision was created over the L2-3 segment. The lumbar fascia was opened along the midline. Subperiosteal dissection was carried out to expose the spinous processes and laminae of L2 and L3. Additional x-rays were obtained until correct localization was confirmed. Portions of the spinous processes were resected. The operating microscope was brought in. Retraction was maintained with an Aesculap expandable speculum retractor under operating microscope. A 5 mm magali bur on a high-speed drill was used to drill the inferior 2/3rd of lamina of L2 and superior 1/3rd lamina of L3 and the medial rim of the L2-3 hypertrophic facet joint. The hypertrophic ligamentum flavum was then carefully resected and the dura was fully exposed and decompressed. The medial aspect of the facet joints were undercut to fully expose and decompress the L3 traversing nerve roots bilaterally. Excellent decompression was achieved. The wound was irrigated with bacitracin solution and closed with 0 and 2-0 Vicryl sutures. The skin was closed with 3-0 Monocryl sutures in subcuticular fashion. Steri-Strips and dressing were applied. The patient was awakened, extubated, and taken to postanesthesia care unit in stable condition. No intraoperative complications were encountered. Estimated blood losswas minimal. Jj Valdez MD PP/MODL /[id number]
--- NOTE | 2020-04-02 12:15 | Diagnostic Imaging Report ---
EXAMINATION: Lumbar spine radiographs - 1 views CLINICAL HISTORY: L2-3 decompressive laminectomy COMPARISON: None. DISCUSSION: Single limited intraoperative cross table radiograph of the lumbar spine. Linear radiopaque surgical markers overlie the L1 and L2 vertebra. No acute osseous abnormality given exam limitations. Multilevel degenerative disc changes and facet arthropathy. IMPRESSION: 1. Limited intraoperative lumbar spine radiograph with linear radiopaque surgical markers overlying the L1 and L2 vertebra. Signed by: Dr. Matthew Mcnair M.D. on 04/02/2020 12:12 PM
--- NOTE | 2020-04-02 12:17 | Diagnostic Imaging Report ---
EXAMINATION: Lumbar spine radiographs - 1 views CLINICAL HISTORY: L2-3 decompressive laminectomy COMPARISON: Intraoperative lumbar spine radiograph performed on the same day. DISCUSSION: Single limited intraoperative cross table radiograph of the lumbar spine. Linear metallic surgical marker overlies the posterior spinal elements at L2. No acute osseous abnormality given exam limitations. Multilevel degenerative disc changes and facet arthropathy. IMPRESSION: Limited intraoperative lumbar spine radiograph with linear metallic surgical marker overlying the posterior spinal elements at L2. Signed by: Dr. Matthew Mcnair M.D. on 04/02/2020 12:13 PM
--- NOTE | 2020-04-02 12:18 | Diagnostic Imaging Report ---
EXAMINATION: Lumbar spine radiographs - 1 views CLINICAL HISTORY: L2-3 decompressive laminectomy COMPARISON: Intraoperative lumbar spine radiograph performed on the same day. DISCUSSION: Single limited intraoperative cross table radiograph of the lumbar spine. Linear metallic surgical marker overlies the posterior spinal elements at L3. No acute osseous abnormality given exam limitations. Multilevel degenerative disc changes and facet arthropathy. IMPRESSION: Limited intraoperative lumbar spine radiograph with linear metallic surgical marker overlying the posterior spinal elements at L3. Signed by: Dr. Matthew Mcnair M.D. on 04/02/2020 12:15 PM
[2020-04-02] MEDS ORDERED: CARISOPRODOL 350 MG TAB ONE (12:24)
[2020-04-02] MEDS ORDERED: OXYCODONE/ACETAMINOPHEN 5-325 1 EACH TABLET ONE (12:24)
[2020-04-02] MEDS ORDERED: LIDOCAINE HCL 2% JELLY 5 ML TUBE ONE (12:46)
[2020-04-02] MEDS ORDERED: SEVOFLURANE INHAL SOLN 250 ML PEN BTL ONE (12:46)
[2020-04-02] MEDS ORDERED: GLYCOPYRROLATE INJ 0.2 MG/ML VIAL ONE (12:46)
[2020-04-02] MEDS ORDERED: ROCURONIUM BROMIDE 10 MG/ML 5ML VIAL IV ONE (12:46)
[2020-04-02] MEDS ORDERED: LIDOCAINE HCL 2% LOCAL INJ 5 ML SDV VIAL INJ ONE (12:46)
[2020-04-02] MEDS ORDERED: PROPOFOL IV EMULSION 10 MG/ML 20 ML VIAL ONE (12:46)
[2020-04-02] MEDS ORDERED: DEXAMETHASONE SOD PHOS INJ 4 MG/ML VIAL ONE (12:46)
[2020-04-02] MEDS ORDERED: NEOSTIGMINE 1 MG/ML 10ML VIAL ONE (12:46)
[2020-04-02] MEDS ORDERED: ONDANSETRON HCL INJ 2MG/ML 2ML 2 MG/ML VIAL ONE (12:46)
--- NOTE | 2020-04-02 13:15 | NUR ---
pt arrived on floor via wheelchair. Pt in no apparent distress.
[2020-04-02 13:45] VITALS: BP 156/77
[2020-04-02] MEDS: LACTATED RINGER'S 1,000 ML IV SCH (14:00)
[2020-04-02] MEDS: OXYCODONE/ACETAMINOPHEN 5-325 1 EACH TABLET PO PRN ×2 (14:19→23:16)
[2020-04-02] MEDS: TIZANIDINE HCL 4 MG TAB PO SCH (16:30)
[2020-04-02] MEDS: VANCOMYCIN 1GM/NS 250 ML 250 ML IV SCH (16:35)
[2020-04-02] MEDS: GABAPENTIN 300 MG CAP PO SCH ×2 (16:35→20:21)
[2020-04-02] MEDS: HYDROMORPHONE 2MG/ML 2 MG/ML ML IV PRN (18:13)
[2020-04-02 18:15] VITALS: BP 113/59
[2020-04-02] MEDS ORDERED: INFLUENZA VIRUS VAC SPLIT INJ 0.5 ML SYR IM SCH (19:14)
[2020-04-02] MEDS ORDERED: PNEUMOCOCCAL VACCINE POLYVALENT 23 MCG/0.5 ML VIAL IM SCH (19:14)
--- NOTE | 2020-04-02 19:15 | NUR ---
Received bedside report from off-going shift nurse. Pt is alert, awake, oriented x3, and is sitting up in bed. Pt denies pain or discomfort at this time. Side rails up x2. Non-skid socks on. Pt does not appear to be in distress. Pt is on room air and denies SOB or difficulty breathing. Instructed pt to call for assistance if/when needed. Call light within reach. Pt verbalized understanding and denies further questions or concerns at this time.
--- NOTE | 2020-04-02 19:16 | NUR ---
trport given to oncoming nurse. Pt lying in bed and no apparent distree.
[2020-04-02 20:00] VITALS: BP 115/66
[2020-04-02 21:00] VITALS: BP 115/66
[2020-04-02] MEDS ORDERED: ZOLPIDEM TARTRATE 5 MG TAB PO PRN (21:00)
[2020-04-02 21:32] VITALS: BP 115/66
[2020-04-03] VITALS: BP 128/64
[2020-04-03] MEDS: HYDROMORPHONE 2MG/ML 2 MG/ML ML IV PRN (01:12)
[2020-04-03] MEDS: LACTATED RINGER'S 1,000 ML IV SCH ×2 (01:12→06:25)
[2020-04-03 04:00] VITALS: BP 113/62
[2020-04-03] MEDS: VANCOMYCIN 1GM/NS 250 ML 250 ML IV SCH (05:39)
[2020-04-03] MEDS ORDERED: NORCO 7.5-3251 EACH PO (07:14)
[2020-04-03] MEDS ORDERED: PNEUMOCOCCAL VACCINE POLYVALENT 23 MCG/0.5 ML VIAL IM SCH (07:45)
[2020-04-03] MEDS ORDERED: INFLUENZA VIRUS VAC SPLIT INJ 0.5 ML SYR IM SCH (07:45)
[2020-04-03] MEDS: TIZANIDINE HCL 4 MG TAB PO SCH (08:00)
[2020-04-03] MEDS: GABAPENTIN 300 MG CAP PO SCH (08:00)
[2020-04-03 08:18] VITALS: BP 154/64
[2020-04-03] MEDS ORDERED: METOPROLOL SUCCINATE 50 MG TAB XL PO SCH (09:00)
[2020-04-03] MEDS: OXYCODONE/ACETAMINOPHEN 5-325 1 EACH TABLET PO PRN (09:04)
--- NOTE | 2020-04-03 09:05 | NUR ---
pneumonia vaccine not given. when arrived to give shot, patient stated that she had one last year and thought they were to be given yearly. shot discarded. IV removed and patient getting dressed to be discharged.
== END 2020-04-03 09:10 | disposition home or self-care (01) ==
LOC: OR 05:55 → PACU V 09:58 → MED/SURG 12:55
PROVIDERS: ADMIT Neurological Surgery; ATTEND Neurological Surgery
DX: M48.062 Spinal stenosis, lumbar region with neurogenic claudication (principal); Z20.828 Contact with and (suspected) exposure to other viral communicable diseases; I10 Essential (primary) hypertension; M19.90 Unspecified osteoarthritis, unspecified site
CPT/HCPCS: 36415; 63047; 63048; 71046; 72020; 80048; 85025; 85610; 85730; 86850; 86900; 88304; 90732; 93005; G0378 ×2; J1100; J1170 ×3; J2001 ×2; J2405; J2704; J2710; J3370 ×3; J7121; U0002